=== PATIENT | male | born 1940 | race Caucasian/White ===

== ENCOUNTER 2021-09-25 19:30 | Inpatient (IN) | payer MEDICARE, BC ==
[2021-09-25] VITALS (14 sets, daily range): BP systolic 138–175; BP diastolic 73–104
[~2021-09-25] VITALS: Ht 167.6 cm; Wt 61.5 kg
[2021-09-25] MEDS ORDERED: IV NORMAL SALINE 1000ML BAG 1,000 ML IV SCH (20:00)
[2021-09-25] MEDS ORDERED: 0.9 % SODIUM CHLORIDE 10 ML DISP.SYRIN. IV PRN (20:00)
[2021-09-25] MEDS ORDERED: ONDANSETRON PF 4 MG/2 ML VIAL. IVP PRN (20:00)
--- NOTE | 2021-09-25 20:17 | NUR ---
admit from [facility] sysptoma TPA given at [facility]. NIH score at [facility] 4. Arrival to [facility] NIH- 21. Dr Arzate here, CT head orders recieved.
[2021-09-25] MEDS: SENNOSIDES/DOCUSATE 8.6/50MG TABLET. PO SCH (21:00)
--- NOTE | 2021-09-25 21:29 | RAD ---
CT HEAD INDICATION: Status post tPA worsening neuro status COMPARISON: None Available. Exposure: One or more of the following individualized dose reduction techniques were utilized for thi s examination: 1. Automated exposure control 2. Adjustment of the mA and/or kV according to patient size 3. Use of iterative reconstruction technique TECHNIQUE: 5 mm contiguous axial images were obtained from the skull base to the vertex in both bone and soft tissue algorithm. FINDINGS: There is a large 4.8 x 5.1 cm intraparenchymal bleed identified in the left posterior parietal occipi darrel lobe causing mild effacement of the sulci with mild mass effect. There is minimal 2 mm left-to-ri ght midline shift. Mild bilateral periventricular white matter hypodensities likely chronic small ves gabriella ischemic disease. Mild opacification of the right anterior ethmoid sinuses. IMPRESSION: Large intraparenchymal bleed identified in the left posterior parietooccipital lobe causing mild effa cement of the sulci with mild mass effect. There is minimal 2 mm [id number] midline shift. FOR INTERNAL CODING PURPOSES Critical result: Findings discussed with patient's nurse at 09/25/2021 9:26 PM. RESULT CODE: (C) Electronically signed by: Tonio Cedeno MD (09/25/2021 9:27 PM) [id number]
[2021-09-25] MEDS ORDERED: levETIRAcetam 1,000mg PREMIX 100 ML IV ONE (22:00)
--- NOTE | 2021-09-25 22:09 | PDOC1 ---
History and Physical Date of Service: DOS: DATE: 09/25/21 TIME: 21:55 Chief Complaint: Chief Complain: neuro deficits History of Present Illness: HPI: Patient is an 81-year-old white male who presented as a transfer from [place] today due to right-sided neuro deficits. Patient on any home meds has not seen a doctor in a few decades. Per report from [place] the patient symptoms began around 1 PM today. He was sitting in his chair at home when he felt like his right arm was not working. He slid out of his chair and eventually called EMS and was brought in. Was taken to CT scan recently there on CT head without acute findings. Neurology was consulted recommended CTA of the head. This did not show any apparent abnormalities either. Patient was still having right-sided deficits and he was given TPA. We were then contacted for ICU admission. At the outside hospital patient apparently was conversant with staff there alert and oriented NIH around 4. On arrival here patient nonverbal unable to follow commands. Apparent worsening neurologic status. CT head urgently repeated which showed a left-sided intraparenchymal hemorrhage with mild midline shift. Stat neurosurgery consult placed. Contacted pharmacy to see if any options for TPA reversal and really not any available. No family contact information with patient's chart to update them on his status. Continue to monitor in ICU. Past Medical/Surgical History: PMH/PSH: No known Allergies: Allergies: Coded Allergies: No Known Drug Allergies (Unverified , 09/25/21) Family History: Family History: Unknown Social History: Social History: from OSH denies alcohol tobacco drug use Current Medications: Current Medications Current Medications Ondansetron HCl (Zofran) 4 mg PRN Q6HRS PRN IVP NAUSEA/VOMITING; Start 09/25/21 at 20:00 Info (Icu Electrolyte Protocol) 1 ea DAILY MC ; Start 09/26/21 at 09:00 Sodium Chloride (Normal Saline Flush) 3 ml QSHIFT PRN IV AFTER MEDS AND BLOOD DRAWS; Start 09/25/21 at 20:00 Sodium Chloride 1,000 ml @ 1,000 mls/hr Q1H IV ; Start 09/25/21 at 20:00; Stop 09/25/21 at 20:59; Status DC Senna/Docusate Sodium (Senna Plus) 1 tab BID PO ; Start 09/25/21 at 21:00 Levetiracetam 100 ml @ 400 mls/hr 1X ONCE IV ; Start 09/25/21 at 22:00; Stop 09/25/21 at 22:14 Lorazepam (Ativan Inj) 2 mg PRN Q4HRS PRN IVP AGITATION SEIZURE; Start 09/25/21 at 20:00 Hydralazine HCl (Apresoline Inj) 10 mg PRN Q4HRS PRN IVP ELEVATED BP, SEE COMMENTS; Start 09/25/21 at 20:00 ROS: Review of Systems Review of System cannot obtain Physical Exam: Physcial Exam: GEN: No apparent distress. HEENT: Normal cephalic, atraumatic, external auditory canals are patent EYES: pupils equal and reactive; MUSCULOSKELETAL: appears chronically ill ENDOCRINE: No thyromegaly was palpated LYMPHATICS: No cervical chain or axillary nodes were noted HEMATOPOIETIC: No bruising NECK: Supple, no JVD, no thyromegaly was noted LUNGS: Clear to auscultation in all lung owens without rhonchi or wheezing HEART: RRR, S1, S2 present. Peripheral pulses intact, no obvious murmurs noted ABDOMEN: Soft, nontender. Positive bowel sounds, no organomegaly, normal bowel sounds EXTREMITIES: Without clubbing, cyanosis, or edema. Pedal pulses intact. Negative Homans sign NEUROLOGIC: Patient aphasic. Unable to follow commands. Does w/d to pain PSYCHIATRIC: cannot assess SKIN: No ulcerations or rashes, good skin turgor, no jaundice VASCULAR: Good capillary refill, neurovascular bundle appears to be intact Assessment/Plan Assessment/Plan Intracranial hemorrhage. -Admit to ICU -CT head with left-sided hemorrhage; received TPA prior to transfer here, -Neurosurgery consultation -Neurology consultation -No family on chart to contact -hold any blood thinners -NPO 50min CC time Justifications for Admission Other Justification CESARIO FULTON MD Sep 25, 2021 22:09
--- NOTE | 2021-09-25 23:13 | NUR ---
CT head show a left brain bleed- Veronica Sanchez and [facility] notified. orders received. unable to complete admission and the sensation part of the ca check s/p TPA patient is aphasic
[2021-09-26] VITALS (26 sets, daily range): BP systolic 114–157; BP diastolic 63–94
[2021-09-26] MEDS: SENNOSIDES/DOCUSATE 8.6/50MG TABLET. PO SCH ×2 (07:27→20:52)
--- NOTE | 2021-09-26 08:18 | PDOC2 ---
NEUROLOGY CONSULT Date of Service DOS: DATE: 09/26/21 TIME: 08:14 Reason for Consult Reason for Consult: Stroke Referring Physician Referring Physician: Dr. Arzate Source Source: Chart review History of Present Illness History of Present Illness The patient is an 81-year-old right-handed male who presented to the [facility] emergency department yesterday with right arm and leg weakness that started at 1315. He lives alone and has not seen a physician in 45 years. He had some shaking of the right side during the ambulance ride. He underwent CT of the head and CT angiogram. Dr. Yang discussed the case with Dr. Suero who recommended alteplase. Patient had an NIH of 4 before the alteplase. I do not find documentation of NIH score after alteplase, but nursing note before transfer shows the patient was alert, states that there is severe weakness of the right side. Dr. Yang told me that he did give some Ativan for the possible seizure activity and there was no recurrence. Upon arrival here, nurse noted an NIH of 21. Patient underwent a repeat head CT positive for hemorrhagic stroke as reviewed below. He has had no further seizure activity. Past Medical History Cardiovascular: No pertinent hx Past Surgical History Past Surgical History: No pertinent history Family History Family History: No pertinent hx Social History Social History Single, quit smoking a year ago, no alcohol Current Medications Current Medications Current Medications Ondansetron HCl (Zofran) 4 mg PRN Q6HRS PRN IVP NAUSEA/VOMITING; Start 09/25/21 at 20:00 Info (Icu Electrolyte Protocol) 1 ea DAILY MC ; Start 09/26/21 at 09:00 Sodium Chloride (Normal Saline Flush) 3 ml QSHIFT PRN IV AFTER MEDS AND BLOOD DRAWS; Start 09/25/21 at 20:00 Sodium Chloride 1,000 ml @ 1,000 mls/hr Q1H IV Last administered on 09/25/21at 21:59; Start 09/25/21 at 20:00; Stop 09/25/21 at 20:59; Status DC Senna/Docusate Sodium (Senna Plus) 1 tab BID PO ; Start 09/25/21 at 21:00 Levetiracetam 100 ml @ 400 mls/hr 1X ONCE IV Last administered on 09/25/21at 22:26; Start 09/25/21 at 22:00; Stop 09/25/21 at 22:14; Status DC Lorazepam (Ativan Inj) 2 mg PRN Q4HRS PRN IVP AGITATION SEIZURE; Start 09/25/21 at 20:00 Hydralazine HCl (Apresoline Inj) 10 mg PRN Q4HRS PRN IVP ELEVATED BP, SEE COMMENTS; Start 09/25/21 at 20:00 Nicardipine HCl 50 mg/Sodium Chloride 250 ml @ 25 mls/hr CONT PRN IV PER PROTOCOL Last administered on 09/25/21at 22:44; Start 09/25/21 at 21:45 Allergies Allergies: Coded Allergies: No Known Drug Allergies (Unverified , 09/25/21) ROS Review of System Unobtainable Physical Exam Physical Examination General: Well-developed, well-nourished white male in no acute distress HEENT: Normocephalic andatraumatic. Temporal arteriespulsatile and nontender. Neck: Supple without bruit, no meningismus Musculoskeletal: Stability:see neurologic. Gait exam:see neurologic. Tone:see neurologic.Strength:see neurologic. Neurological: Mental Status:orientation, memory, attention span/concentration, language, fund of knowledge: Eyes open a little to voice, does not follow commands, does look at observer. Cranial Nerves:Pupils equal and reactive to light, extraocular movements areintact. Right field cut. Right central facial weakness. All other cranial related problems are negative except as mentioned before.Reflexes:2+ and symmetric with flexor plantar responses. Motor:Right hemiparesis. Coordination ang gait:Not cooperative. Sensory:Not cooperative. Vitals VITALS Vital Signs Date Time Temp Pulse Resp B/P (MAP) Pulse Ox O2 Delivery O2 Flow Rate FiO2 09/26/21 08:00 Nasal Cannula 2.0 09/26/21 08:00 98.7 98 21 114/[address] HEAD, 09/25/2021 9:26 PM There is a large 4.8 x 5.1 cm intraparenchymal bleed identified in the left posterior parietal occipital lobe causing mild effacement of the sulci with mild mass effect. There is minimal 2 mm [id number] midline shift. Mild bilateral periventricular white matter hypodensities likely chronic small vessel ischemic disease. Mild opacification of the right anterior ethmoid sinuses. IMPRESSION: Large intraparenchymal bleed identified in the left posterior parietooccipital lobe causing mild effacement of the sulci with mild mass effect. There is minimal 2 mm [id number] midline shift. Cristina's: CT STROKE HEAD W/O History: Right arm weakness, numbness. Rule out stroke. Comparison: None. Technique: Noncontrast CT imaging was performed of the head. Findings: No intracranial hemorrhage. No mass effect. No hydrocephalus. No evidence of acute territorial infarction. Moderate hypodensity the periventricular and deep white matter consistent with chronic microvascular ischemic changes. Imaged orbits are unremarkable. Imaged paranasal sinuses and mastoid air cells are clear. The scalp and calvarium are unremarkable. Impression: 1. No acute intracranial abnormality. CTA HEAD AND NECK W/WO CONTRAST History: Right arm weakness. Code stroke. Technique: After bolus of intravenous contrast, volumetric CT data acquisition was acquired of the head and neck. Multiplanar reconstruction images to include MIP and 3-D reconstruction images are submitted. Any determination of stenosis is based on NASCET criteria. Comparison: None Findings: Angiogram neck: Aortic arch: Normal caliber. Mild atherosclerotic calcification. 2 vessel morphology. Common carotid arteries: No stenosis, occlusion or dissection. Internal carotid arteries: No stenosis, occlusion or dissection. External carotid arteries: Patent Vertebral arteries: No stenosis, occlusion or dissection. Angiogram head: ICA: No stenosis, occlusion or aneurysm. MCA: No stenosis, occlusion or aneurysm. DENEEN: No stenosis, occlusion or aneurysm. PLUNKET NURSE: No stenosis, occlusion or aneurysm. Basilar artery: No stenosis, occlusion or aneurysm. Distal vertebral arteries: No stenosis, occlusion or aneurysm. Other: Imaged lung apices are unremarkable. Soft tissues appear normal. No pathologic osseous lesions. Multilevel degenerative changes in the spine. Right maxillary sinus opacification. Impression: 1. No large vessel occlusion. 2. No significant stenosis in the head and neck. 3. Right maxillary sinus disease. Findings discussed with emergency room staff on behalf of Dr. Yang who was involved in a procedure at 09/25/2021 4:15 PM. Assessment/Plan Assessment/Plan Impression: Large intraparenchymal hemorrhage of the left parietal lobe following alteplase given for clinically a small ischemic stroke He had some possible seizure activity but no recurrence Has not seen a physician in 45 years Recommendations: Repeat head CT this morning Neurosurgery is on the case Rehabilitation modalities Hold anticoagulation Blood pressure goal less than 150/90 Also see stroke orders Thank you for letting me help with the patient's care. NICKIE CAMILO MD Sep 26, 2021 08:18
[2021-09-26] MEDS ORDERED: PHARMACY TO REVIEW MEDS. MC PRN (08:30)
[2021-09-26] MEDS: ELECTROLYTE (ICU) PROTOCOL. MC SCH (09:00)
--- NOTE | 2021-09-26 10:05 | PDOC ---
[facility] [facility] PROGRESS NOTE Date of Service DOS: DATE: 09/26/21 TIME: 09:55 Chief Complaint Chief Complaint CVA s/p alteplase 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 History of Present Illness History of Present Illness 09/26: Patient seen in ICU. Afebrile. S/P tPA with hemorrhagic conversion. Neurosurgery consulted. Continue nicardipine drip with goal blood /90 mmHg. Appears to be in rate controlled A. fib. He is somewhat somnolent. Critical care time 30 minutes spent reviewing charts, reviewing labs, reviewing imaging, discussion with RN. Vitals/I&O Vitals/I&O: Vital Signs Date Time Temp Pulse Resp B/P (MAP) Pulse Ox O2 Delivery O2 Flow Rate FiO2 09/26/21 09:00 97 21 123/64 96 Nasal Cannula 2.0 09/26/21 08:00 98.7 98.7 I & O 09/25/21 09/25/21 09/26/21 15:00 23:00 07:00 Intake Total 0 ml 135 ml Balance 0 ml 135 ml Physical Exam General: Alert, No acute distress Heart: Other (Irregularly irregular) Lungs: Clear Abdomen: Soft Extremities: No clubbing, No cyanosis Skin: No rashes, No breakdown Comment Review of Relevant I have reviewed the following items chapito (where applicable) has been applied. Medications: Current Medications Medications (Trade) Dose Ordered Sig/Isaac Route PRN Reason Start Time Stop Time Status Last Admin Dose Admin Sodium Chloride 1,000 ml @ 1,000 mls/hr Q1H IV 09/25/21 20:00 09/25/21 20:59 DC 09/25/21 21:59 Levetiracetam 100 ml @ 400 mls/hr 1X ONCE IV 09/25/21 22:00 09/25/21 22:14 DC 09/25/21 22:26 Nicardipine HCl 50 mg/Sodium Chloride 250 ml @ 25 mls/hr CONT PRN IV PER PROTOCOL 09/25/21 21:45 09/26/21 08:48 DC 09/25/21 22:44 Justifications for Admission Other Justification ORQUIDEA CHING MD Sep 26, 2021 10:05
--- NOTE | 2021-09-26 10:07 | NUR ---
SS following for discharge planning. SS reviewed pt chart and discussed with pt RN. Pt is from home and is currently requiring oxygen at two liters nasal canula. Pt had TPA at [facility]. Non-verbal. Brain bleed. Neurosurgery and Neurology consulted. SS will continue to follow for discharge planning.
[2021-09-26 12:01] LABS: BASO # 0.1 x10^3/uL (0.0-0.2); BASO % 1 % (0-3); EOS % 0 % (0-3); HEMATOCRIT 42.7 % (39.0-53.0); HEMOGLOBIN 13.8 g/dL (13.0-17.5); LYMPH # 1.3 x10^3/uL (1.0-4.8); LYMPH % 9 % (24-48); MEAN CORPUSCULAR HEMOGLOBIN 29 pg (25-35); MEAN CORPUSCULAR HGB CONC 32 g/dL (31-37); MEAN CORPUSCULAR VOLUME 89 fL (79-100); MONO % 14 % (0-9); NEUT # 10.5 x10^3/uL (1.8-7.7); NEUT % 76 % (31-73); PLATELET COUNT 202 x10^3/uL (140-400); RED BLOOD COUNT 4.78 x10^6/uL (4.30-5.70); WHITE BLOOD COUNT 13.9 x10^3/uL (4.0-11.0)
[2021-09-26 12:17] LABS: ALBUMIN 3.4 g/dL (3.4-5.0); ALBUMIN/GLOBULIN RATIO 1.1 (1.0-1.7); CALCIUM 8.5 mg/dL (8.5-10.1); CREATININE 0.8 mg/dL (0.7-1.3); GFR 92.3; POTASSIUM 4.1 mmol/L (3.5-5.1); TOTAL BILIRUBIN 0.7 mg/dL (0.2-1.0); TOTAL PROTEIN 6.4 g/dL (6.4-8.2)
--- NOTE | 2021-09-26 12:43 | PDOC ---
Provider Note Date of Service: DATE: 09/26/21 TIME: 12:37 Provider Note Patient seen and examined at 1145 consulted for hemorrhagic stoke The patient is an 81-year-old right-handed male who presented to the [facility] emergency department yesterday with right arm and leg weakness that started at 1315. He lives alone and has not seen a physician in 45 years. He had some shaking of the right side during the ambulance ride. He underwent CT of the head and CT angiogram. Dr. Yang discussed the case with Dr. Suero who recommended alteplase. Patient had an NIH of 4 before the alteplase. I do not find documentation of NIH score after alteplase, but nursing note before transfer shows the patient was alert, states that there is severe weakness of the right side. Dr. Yang told me that he did give some Ativan for the possible seizure activity and there was no recurrence. Upon arrival here, nurse noted an NIH of 21. Patient underwent a repeat head CT positive for hemorrhagic stroke as reviewed below. He has had no further seizure activity. on exam- Eyes open to voice, does not follow commands, does look at observer. Pupils equal and reactive to light, extraocular movements areintact. Right hemiparesis.Sensory:Not cooperative. CT head with Large intraparenchymal bleed identified in the left posterior parietooccipital lobe causing mild effacement of the sulci with mild mass effect. There is minimal 2 mm [id number] midline shift. continue to monitor in ICU d/w RN SCDs Justifications for Admission Other Justification MEHREEN KRISHNAN MD Sep 26, 2021 12:43
--- NOTE | 2021-09-26 15:54 | RAD ---
CT HEAD/BRAIN WO Date: 09/26/2021 9:17 AM Clinical Indication: F/U ICH Comparison: 09/25/2021. Technique: 5 mm axial tomographic images were obtained of the head without contrast. These were view ed on brain and bone windows. One or more of the following dose reduction techniques were utilized: A utomated exposure control (AEC), Adjustment of mA and/or kV according to patient size, Use of iterati ve reconstruction technique such as ASiR, CT scan done according to ALARA and image gently/image gaines ly Findings: Left parietal acute intraparenchymal hemorrhage is slightly larger in size allowing for differences i n patient's positioning. Increased mass effect on the left lateral ventricle. Unchanged 2 mm left to right midline shift. Patent basilar cisterns. The visualized paranasal sinuses are normal. The visualized portions of the orbits and globes are no rmal. The mastoid air cells are clear. The batching operator topogram shows no lytic lesion or fracture. Impression: Left parietal acute intraparenchymal hemorrhage is slightly larger in size allowing for differences i n patient's positioning. Increased mass effect on the left lateral ventricle. Unchanged 2 mm left to right midline shift. Patent basilar cisterns. Electronically signed by: Oseas Garrido MD (09/26/2021 3:52 PM) [id number]
--- NOTE | 2021-09-26 17:21 | NUR ---
Patient's spoke with patients half sister on his mom's side. Patient is adopted and has only recently found his biological siblings. His sister stated that all of his brother there are 7 have been diagnosed with hypertrophic cardiomyopathy. She stated his brother who is only 28 [address] Causey notified.
[2021-09-27] VITALS (23 sets, daily range): BP systolic 101–178; BP diastolic 47–115
[2021-09-27] MEDS: ELECTROLYTE (ICU) PROTOCOL. MC SCH (09:00)
[2021-09-27] MEDS: SENNOSIDES/DOCUSATE 8.6/50MG TABLET. PO SCH ×2 (09:00→20:05)
--- NOTE | 2021-09-27 11:53 | PDOC ---
PROGRESS NOTES Date of Service DATE: 09/27/21 TIME: 11:50 Assessment Large intraparenchymal hemorrhage of the left parietal lobe following alteplase given for clinically a small ischemic stroke, a little larger on yesterday's CT scan, but clinically unchanged He had some possible seizure activity but no recurrence Has not seen a physician in 45 years Plan Neurosurgery consult appreciated Rehabilitation modalities Hold anticoagulation Blood pressure goal less than 150/90 ICU monitoring Repeat head CT depending on clinical course Echocardiogram and brain MRI depending on clinical course Subjective None Objective Vital Signs Date Time Temp Pulse Resp B/P (MAP) Pulse Ox O2 Delivery O2 Flow Rate FiO2 09/27/21 06:00 114 22 140/84 96 Nasal Cannula 3.0 09/27/21 04:00 98.5 98.5 Intake and Output 09/27/21 07:00 Intake Total 0 ml Output Total 0 ml Balance 0 ml Intake Oral 0 ml Output Urine Total 0 ml # Voids 6 PHYSICAL EXAM Eyes open to voice, does not follow commands, does not regard observer PERRL. EOMI. CN: Right field cut to threat, right central facial weakness Muscle tone: normal. Muscle strength: Right hemiparesis DTR: 2+ Plantar reflex: Flexor Gait: not examined Sensory exam: Not cooperative. Cerebellar:Not cooperative Review of Relevant I have reviewed the following items chapito (where applicable) has been applied. Labs Laboratory Tests Test 09/26/21 11:47 White Blood Count 13.9 x10^3/uL (4.0-11.0) Red Blood Count 4.78 x10^6/uL (4.30-5.70) Hemoglobin 13.8 g/dL (13.0-17.5) Hematocrit 42.7 % (39.0-53.0) Mean Corpuscular Volume 89 fL (79-100) Mean Corpuscular Hemoglobin 29 pg (25-35) Mean Corpuscular Hemoglobin Concent 32 g/dL (31-37) Red Cell Distribution Width 14.0 % (11.5-14.5) Platelet Count 202 x10^3/uL (140-400) Neutrophils (%) (Auto) 76 % (31-73) Lymphocytes (%) (Auto) 9 % (24-48) Monocytes (%) (Auto) 14 % (0-9) Eosinophils (%) (Auto) 0 % (0-3) Basophils (%) (Auto) 1 % (0-3) Neutrophils # (Auto) 10.5 x10^3/uL (1.8-7.7) Lymphocytes # (Auto) 1.3 x10^3/uL (1.0-4.8) Monocytes # (Auto) 2.0 x10^3/uL (0.0-1.1) Eosinophils # (Auto) 0.0 x10^3/uL (0.0-0.7) Basophils # (Auto) 0.1 x10^3/uL (0.0-0.2) Sodium Level 140 mmol/L (136-145) Potassium Level 4.1 mmol/L (3.5-5.1) Chloride Level 103 mmol/L (98-107) Carbon Dioxide Level 27 mmol/L (21-32) Anion Gap 10 (6-14) Blood Urea Nitrogen 11 mg/dL (8-26) Creatinine 0.8 mg/dL (0.7-1.3) Estimated GFR (Cockcroft-Gault) 92.3 BUN/Creatinine Ratio 14 (6-20) Glucose Level 128 mg/dL (70-99) Lactic Acid Level 1.3 mmol/L (0.4-2.0) Calcium Level 8.5 mg/dL (8.5-10.1) Total Bilirubin 0.7 mg/dL (0.2-1.0) Aspartate Amino Transf (AST/SGOT) 21 U/L (15-37) Alanine Aminotransferase (ALT/SGPT) 18 U/L (16-63) Alkaline Phosphatase 72 U/L (46-116) Total Protein 6.4 g/dL (6.4-8.2) Albumin 3.4 g/dL (3.4-5.0) Albumin/Globulin Ratio 1.1 (1.0-1.7) Medications Current Medications Ondansetron HCl (Zofran) 4 mg PRN Q6HRS PRN IVP NAUSEA/VOMITING; Start 09/25/21 at 20:00 Info (Icu Electrolyte Protocol) 1 ea DAILY MC ; Start 09/26/21 at 09:00 Sodium Chloride (Normal Saline Flush) 3 ml QSHIFT PRN IV AFTER MEDS AND BLOOD DRAWS; Start 09/25/21 at 20:00 Sodium Chloride 1,000 ml @ 1,000 mls/hr Q1H IV Last administered on 09/25/21at 21:59; Start 09/25/21 at 20:00; Stop 09/25/21 at 20:59; Status DC Senna/Docusate Sodium (Senna Plus) 1 tab BID PO ; Start 09/25/21 at 21:00 Levetiracetam 100 ml @ 400 mls/hr 1X ONCE IV Last administered on 09/25/21at 22:26; Start 09/25/21 at 22:00; Stop 09/25/21 at 22:14; Status DC Lorazepam (Ativan Inj) 2 mg PRN Q4HRS PRN IVP AGITATION SEIZURE; Start 09/25/21 at 20:00 Hydralazine HCl (Apresoline Inj) 10 mg PRN Q4HRS PRN IVP ELEVATED BP, SEE COMMENTS; Start 09/25/21 at 20:00 Nicardipine HCl 50 mg/Sodium Chloride 250 ml @ 25 mls/hr CONT PRN IV PER PROTOCOL Last administered on 09/25/21at 22:44; Start 09/25/21 at 21:45; Stop 09/26/21 at 08:48; Status DC Info (Review Meds) 1 ea PRN 1X PRN MC SEE COMMENTS; Start 09/26/21 at 08:30 Acetaminophen (Tylenol Supp) 650 mg PRN Q6HRS PRN [place] FEVER > 100.5'F or 38'C; Start 09/26/21 at 08:30 Nicardipine HCl 50 mg/Sodium Chloride 250 ml @ 25 mls/hr CONT PRN IV HYPERTENSION; Start 09/26/21 at 08:30 Vitals/I & O Vital Sign - Last 24 Hours 09/26/21 09/26/21 09/26/21 09/26/21 12:00 12:00 13:00 14:00 Temp 98.9 98.9 Pulse 96 98 99 Resp 17 B/P (MAP) 127/78 131/73 149/83 Pulse Ox 95 97 95 O2 Delivery Nasal Cannula Nasal Cannula Nasal Cannula Nasal Cannula O2 Flow Rate 3.0 3.0 3.0 3.0 09/26/21 09/26/21 09/26/21 09/26/21 15:00 16:00 16:00 17:00 Temp 98.5 98.5 Pulse 88 101 92 Resp 23 22 23 B/P (MAP) 128/83 142/94 151/91 Pulse Ox 92 96 97 O2 Delivery Nasal Cannula Nasal Cannula Nasal Cannula Nasal Cannula O2 Flow Rate 3.0 3.0 3.0 3.0 09/26/21 09/26/21 09/26/21 09/26/21 19:00 20:00 20:00 21:00 Temp 98.3 98.3 Pulse 106 105 103 B/P (MAP) 157/81 130/80 138/84 Pulse Ox 97 97 97 O2 Delivery Nasal Cannula Nasal Cannula Nasal Cannula Nasal Cannula O2 Flow Rate 3.0 3.0 3.0 3.0 09/26/21 09/26/21 09/27/21 09/27/21 22:00 23:00 00:00 00:00 Temp 98.1 98.1 Pulse 109 110 118 B/P (MAP) 148/88 137/84 142/87 Pulse Ox 97 97 93 O2 Delivery Nasal Cannula Nasal Cannula Nasal Cannula Nasal Cannula O2 Flow Rate 3.0 3.0 3.0 3.0 09/27/21 09/27/21 09/27/21 09/27/21 01:00 02:00 03:00 04:00 Temp 98.5 98.5 Pulse 111 111 109 110 Resp B/P (MAP) 132/82 150/88 149/87 145/84 Pulse Ox 93 95 96 96 O2 Delivery Nasal Cannula Nasal Cannula Nasal Cannula Nasal Cannula O2 Flow Rate 3.0 3.0 3.0 3.0 09/27/21 09/27/21 09/27/21 04:00 05:00 06:00 Pulse 102 114 B/P (MAP) 146/88 140/84 Pulse Ox 95 96 O2 Delivery Nasal Cannula Nasal Cannula Nasal Cannula O2 Flow Rate 3.0 3.0 3.0 Intake and Output 09/26/21 09/26/21 09/27/21 15:00 23:00 07:00 Intake Total 0 ml Output Total 0 ml Balance 0 ml [address] HEAD/BRAIN WO, 09/26/2021 9:17 AM Clinical Indication: F/U ICH Comparison: 09/25/2021. Technique: 5 mm axial tomographic images were obtained of the head without contrast. These were viewed on brain and bone windows. One or more of the following dose reduction techniques were utilized: Automated exposure control (AEC), Adjustment of mA and/or kV according to patient size, Use of iterative reconstruction technique such as ASiR, CT scan done according to ALARA and image gently/image wisely Findings: Left parietal acute intraparenchymal hemorrhage is slightly larger in size allowing for differences in patient's positioning. Increased mass effect on the left lateral ventricle. Unchanged 2 mm left to right midline shift. Patent basilar cisterns. The visualized paranasal sinuses are normal. The visualized portions of the orbits and globes are normal. The mastoid air cells are clear. The iuss acoustic analyst topogram shows no lytic lesion or fracture. Impression: Left parietal acute intraparenchymal hemorrhage is slightly larger in size allowing for differences in patient's positioning. Increased mass effect on the left lateral ventricle. Unchanged 2 mm left to right midline shift. Patent basilar cisterns. Justicifation of Admission Dx: Justifications for Admission: Justification of Admission Dx: Yes Acute Hemorrhagic Stroke: Acute Hemorrhagic Stroke NICKIE CAMILO MD Sep 27, 2021 11:53
--- NOTE | 2021-09-27 14:24 | PDOC ---
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 Afebrile. S/P tPA with hemorrhagic conversion. Neurosurgery consulted. Continue nicardipine drip with goal blood [id number] mmHg. Appears to be in rate controlled A. fib. He is somewhat somnolent. Critical care time 30 minutes spent reviewing charts, reviewing labs, reviewing imaging, discussion with RN. 09/27: Patient seen in ICU. Afebrile, tachycardic. S/P TPA with hemorrhagic conversion. Continue to manage blood pressure with IV nicardipine, but essentially no change. Plan is for echocardiogram and MRI when clinical course improves. Critical care time 30 minutes spent reviewing charts, reviewing labs, reviewing imaging, discussion with RN. Vitals/I&O Vitals/I&O: Vital Signs Date Time Temp Pulse Resp B/P (MAP) Pulse Ox O2 Delivery O2 Flow Rate FiO2 09/27/21 12:00 96 23 163/95 100 Nasal Cannula 09/27/21 12:00 2.0 09/27/21 08:00 98.6 98.6 I & O 09/26/21 09/26/21 09/27/21 15:00 23:00 07:00 Intake Total 0 ml Output Total 0 ml Balance 0 ml 0 ml Physical Exam General: Alert, No acute distress Heart: Other (Irregularly irregular) Lungs: Clear Abdomen: Soft Extremities: No clubbing, No cyanosis Skin: No rashes, No breakdown Comment Review of Relevant I have reviewed the following items chapito (where applicable) has been applied. Justifications for Admission Other Justification ORQUIDEA CHING MD Sep 27, 2021 14:24
--- NOTE | 2021-09-27 14:51 | PDOC ---
PROGRESS NOTES Date of Service DATE: 09/27/21 TIME: 14:49 Subjective Subjective no change Objective Objective Vital Signs Date Time Temp Pulse Resp B/P (MAP) Pulse Ox O2 Delivery O2 Flow Rate FiO2 09/27/21 12:00 96 23 163/95 100 Nasal Cannula 09/27/21 12:00 2.0 09/27/21 08:00 98.6 98.6 Intake and Output 09/27/21 07:00 Intake Total 0 ml Output Total 0 ml Balance 0 ml Intake Oral 0 ml Output Urine Total 0 ml # Voids 6 Physical Exam Neuro: Other (Eyes open to voice, does not follow commands, right hemiparesis) Plan Plan of Care Large intraparenchymal hemorrhage of the left parietal lobe following alteplase given for clinically a small ischemic stroke, a little larger on yesterday's CT scan, but clinically unchanged continue to monitor in ICU Comment Review of Relevant I have reviewed the following items chapito (where applicable) has been applied. Labs Laboratory Tests Test 09/26/21 11:47 White Blood Count 13.9 x10^3/uL (4.0-11.0) Red Blood Count 4.78 x10^6/uL (4.30-5.70) Hemoglobin 13.8 g/dL (13.0-17.5) Hematocrit 42.7 % (39.0-53.0) Mean Corpuscular Volume 89 fL (79-100) Mean Corpuscular Hemoglobin 29 pg (25-35) Mean Corpuscular Hemoglobin Concent 32 g/dL (31-37) Red Cell Distribution Width 14.0 % (11.5-14.5) Platelet Count 202 x10^3/uL (140-400) Neutrophils (%) (Auto) 76 % (31-73) Lymphocytes (%) (Auto) 9 % (24-48) Monocytes (%) (Auto) 14 % (0-9) Eosinophils (%) (Auto) 0 % (0-3) Basophils (%) (Auto) 1 % (0-3) Neutrophils # (Auto) 10.5 x10^3/uL (1.8-7.7) Lymphocytes # (Auto) 1.3 x10^3/uL (1.0-4.8) Monocytes # (Auto) 2.0 x10^3/uL (0.0-1.1) Eosinophils # (Auto) 0.0 x10^3/uL (0.0-0.7) Basophils # (Auto) 0.1 x10^3/uL (0.0-0.2) Sodium Level 140 mmol/L (136-145) Potassium Level 4.1 mmol/L (3.5-5.1) Chloride Level 103 mmol/L (98-107) Carbon Dioxide Level 27 mmol/L (21-32) Anion Gap 10 (6-14) Blood Urea Nitrogen 11 mg/dL (8-26) Creatinine 0.8 mg/dL (0.7-1.3) Estimated GFR (Cockcroft-Gault) 92.3 BUN/Creatinine Ratio 14 (6-20) Glucose Level 128 mg/dL (70-99) Lactic Acid Level 1.3 mmol/L (0.4-2.0) Calcium Level 8.5 mg/dL (8.5-10.1) Total Bilirubin 0.7 mg/dL (0.2-1.0) Aspartate Amino Transf (AST/SGOT) 21 U/L (15-37) Alanine Aminotransferase (ALT/SGPT) 18 U/L (16-63) Alkaline Phosphatase 72 U/L (46-116) Total Protein 6.4 g/dL (6.4-8.2) Albumin 3.4 g/dL (3.4-5.0) Albumin/Globulin Ratio 1.1 (1.0-1.7) Medications Current Medications Ondansetron HCl (Zofran) 4 mg PRN Q6HRS PRN IVP NAUSEA/VOMITING; Start 09/25/21 at 20:00 Info (Icu Electrolyte Protocol) 1 ea DAILY MC ; Start 09/26/21 at 09:00 Sodium Chloride (Normal Saline Flush) 3 ml QSHIFT PRN IV AFTER MEDS AND BLOOD DRAWS; Start 09/25/21 at 20:00 Sodium Chloride 1,000 ml @ 1,000 mls/hr Q1H IV Last administered on 09/25/21at 21:59; Start 09/25/21 at 20:00; Stop 09/25/21 at 20:59; Status DC Senna/Docusate Sodium (Senna Plus) 1 tab BID PO ; Start 09/25/21 at 21:00 Levetiracetam 100 ml @ 400 mls/hr 1X ONCE IV Last administered on 09/25/21at 22:26; Start 09/25/21 at 22:00; Stop 09/25/21 at 22:14; Status DC Lorazepam (Ativan Inj) 2 mg PRN Q4HRS PRN IVP AGITATION SEIZURE; Start 09/25/21 at 20:00 Hydralazine HCl (Apresoline Inj) 10 mg PRN Q4HRS PRN IVP ELEVATED BP, SEE COMMENTS; Start 09/25/21 at 20:00 Nicardipine HCl 50 mg/Sodium Chloride 250 ml @ 25 mls/hr CONT PRN IV PER PROTOCOL Last administered on 09/25/21at 22:44; Start 09/25/21 at 21:45; Stop 09/26/21 at 08:48; Status DC Info (Review Meds) 1 ea PRN 1X PRN MC SEE COMMENTS; Start 09/26/21 at 08:30 Acetaminophen (Tylenol Supp) 650 mg PRN Q6HRS PRN [place] FEVER > 100.5'F or 38'C; Start 09/26/21 at 08:30 Nicardipine HCl 50 mg/Sodium Chloride 250 ml @ 25 mls/hr CONT PRN IV HYPERTENSION; Start 09/26/21 at 08:30 Vitals/I & O Vital Sign - Last 24 Hours 09/26/21 09/26/21 09/26/21 09/26/21 15:00 16:00 16:00 17:00 Temp 98.5 98.5 Pulse 88 101 92 Resp B/P (MAP) 128/83 142/94 151/91 Pulse Ox 92 96 97 O2 Delivery Nasal Cannula Nasal Cannula Nasal Cannula Nasal Cannula O2 Flow Rate 3.0 3.0 3.0 3.0 09/26/21 09/26/21 09/26/21 09/26/21 19:00 20:00 20:00 21:00 Temp 98.3 98.3 Pulse 106 105 103 Resp B/P (MAP) 157/81 130/80 138/84 Pulse Ox 97 97 97 O2 Delivery Nasal Cannula Nasal Cannula Nasal Cannula Nasal Cannula O2 Flow Rate 3.0 3.0 3.0 3.0 09/26/21 09/26/21 09/27/21 09/27/21 22:00 23:00 00:00 00:00 Temp 98.1 98.1 Pulse 109 110 118 Resp B/P (MAP) 148/88 137/84 142/87 Pulse Ox 97 97 93 O2 Delivery Nasal Cannula Nasal Cannula Nasal Cannula Nasal Cannula O2 Flow Rate 3.0 3.0 3.0 3.0 09/27/21 09/27/21 09/27/21 09/27/21 01:00 02:00 03:00 04:00 Temp 98.5 98.5 Pulse 111 111 109 110 Resp B/P (MAP) 132/82 150/88 149/87 145/84 Pulse Ox 93 95 96 96 O2 Delivery Nasal Cannula Nasal Cannula Nasal Cannula Nasal Cannula O2 Flow Rate 3.0 3.0 3.0 3.0 09/27/21 09/27/21 09/27/21 09/27/21 04:00 05:00 06:00 07:00 Pulse 102 114 108 Resp B/P (MAP) 146/88 140/84 163/103 Pulse Ox 95 96 90 O2 Delivery Nasal Cannula Nasal Cannula Nasal Cannula Nasal Cannula O2 Flow Rate 3.0 3.0 3.0 3.0 09/27/21 09/27/21 09/27/21 09/27/21 08:00 08:00 09:00 10:00 Temp 98.6 98.6 Pulse 110 114 108 Resp B/P (MAP) 176/93 178/115 Pulse Ox 96 100 100 O2 Delivery Nasal Cannula Nasal Cannula Nasal Cannula Nasal Cannula O2 Flow Rate 2.0 3.0 09/27/21 09/27/21 09/27/21 11:00 12:00 12:00 Pulse 104 96 B/P (MAP) 178/111 163/95 Pulse Ox 100 100 O2 Delivery Nasal Cannula Nasal Cannula Nasal Cannula O2 Flow Rate 2.0 Intake and Output 09/26/21 09/26/21 09/27/21 15:00 23:00 07:00 Intake Total 0 ml Output Total 0 ml Balance 0 ml 0 ml Justifications for Admission Other Justification MEHREEN KRISHNAN MD Sep 27, 2021 14:51
--- NOTE | 2021-09-27 14:59 | NUR ---
Call from immediate family(son Smooth and daughter ?Martha). Unfortunate they had not been reached until son went to house and found door" kicked in". Information on transfer to hospital obtained from neighbors w update on family members condition after call to unit. HIPPA code available to both at time of call. No neuro change past [address] Gallegos in,guarded prognosis. Need to suction oral -unable to "clear" air way independently. Cardene off approx 4 H w gradual increase in BP. Cardene restarted low dose to maintain BP goal 150/90. Cont w current POC
[2021-09-28] VITALS (21 sets, daily range): BP systolic 89–171; BP diastolic 53–92
[2021-09-28 04:46] LABS: BASO # 0.1 x10^3/uL (0.0-0.2); BASO % 1 % (0-3); EOS % 0 % (0-3); HEMATOCRIT 43.4 % (39.0-53.0); HEMOGLOBIN 14.3 g/dL (13.0-17.5); LYMPH # 1.1 x10^3/uL (1.0-4.8); LYMPH % 7 % (24-48); MEAN CORPUSCULAR HEMOGLOBIN 29 pg (25-35); MEAN CORPUSCULAR HGB CONC 33 g/dL (31-37); MEAN CORPUSCULAR VOLUME 89 fL (79-100); MONO # 2.2 x10^3/uL (0.0-1.1); MONO % 13 % (0-9); NEUT # 13.6 x10^3/uL (1.8-7.7); NEUT % 80 % (31-73); PLATELET COUNT 185 x10^3/uL (140-400); RED BLOOD COUNT 4.87 x10^6/uL (4.30-5.70); RED CELL DISTRIBUTION WIDTH 14.2 % (11.5-14.5)
[2021-09-28] MEDS: SENNOSIDES/DOCUSATE 8.6/50MG TABLET. PO SCH ×2 (09:00→21:00)
[2021-09-28] MEDS: ELECTROLYTE (ICU) PROTOCOL. MC SCH (09:00)
--- NOTE | 2021-09-28 12:07 | PDOC ---
[facility] PROGRESS NOTE Date of Service DOS: DATE: 09/28/21 TIME: 12:02 Chief Complaint Chief Complaint CVA s/p alteplase 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 History of Present Illness History of Present Illness 09/26: Patient seen in ICU. Afebrile. S/P tPA with hemorrhagic conversion. Neurosurgery consulted. Continue nicardipine drip with goal blood [id number] mmHg. Appears to be in rate controlled A. fib. He is somewhat somnolent. Critical care time 30 minutes spent reviewing charts, reviewing labs, reviewing imaging, discussion with RN. 09/27: Patient seen in ICU. Afebrile, tachycardic. S/P TPA with hemorrhagic conversion. Continue to manage blood pressure with IV nicardipine, but essentially no change. Plan is for echocardiogram and MRI when clinical course improves. Critical care time 30 minutes spent reviewing charts, reviewing labs, reviewing imaging, discussion with RN. 09/28: Patient seen in ICU. Afebrile, remains somewhat tachycardic. He is clinically unchanged. We will continue to monitor in ICU. PT/OT/ST following. If patient fails a swallow study test, which is highly likely, will need to provide nutrition with NG tube. Spent a considerable amount of time with daughter discussing plan of care. He is COVID-19 negative by PCR at [facility], so immunocompromised family members may come and visit him. Critical care time 30 minutes spent reviewing charts, reviewing labs, reviewing imaging, discussion with daughter, discussion with RN. Vitals/I&O Vitals/I&O: Vital Signs Date Time Temp Pulse Resp B/P (MAP) Pulse Ox O2 Delivery O2 Flow Rate FiO2 09/28/21 06:00 118 20 125/80 91 Nasal Cannula 09/28/21 04:00 98.1 98.1 09/28/21 04:00 2.0 I & O 09/27/21 09/27/21 09/28/21 15:00 23:00 07:00 Intake Total 0 ml 0 ml 162 ml Balance 0 ml 0 ml 162 ml Physical Exam General: Alert, No acute distress Heart: Other (Irregularly irregular) Lungs: Clear Abdomen: Soft Extremities: No clubbing, No cyanosis Skin: No rashes, No breakdown Labs Labs: Laboratory Tests Test 09/28/21 04:30 White Blood Count 17.0 x10^3/uL (4.0-11.0) Red Blood Count 4.87 x10^6/uL (4.30-5.70) Hemoglobin 14.3 g/dL (13.0-17.5) Hematocrit 43.4 % (39.0-53.0) Mean Corpuscular Volume 89 fL (79-100) Mean Corpuscular Hemoglobin 29 pg (25-35) Mean Corpuscular Hemoglobin Concent 33 g/dL (31-37) Red Cell Distribution Width 14.2 % (11.5-14.5) Platelet Count 185 x10^3/uL (140-400) Neutrophils (%) (Auto) 80 % (31-73) Lymphocytes (%) (Auto) 7 % (24-48) Monocytes (%) (Auto) 13 % (0-9) Eosinophils (%) (Auto) 0 % (0-3) Basophils (%) (Auto) 1 % (0-3) Neutrophils # (Auto) 13.6 x10^3/uL (1.8-7.7) Lymphocytes # (Auto) 1.1 x10^3/uL (1.0-4.8) Monocytes # (Auto) 2.2 x10^3/uL (0.0-1.1) Eosinophils # (Auto) 0.0 x10^3/uL (0.0-0.7) Basophils # (Auto) 0.1 x10^3/uL (0.0-0.2) Comment Review of Relevant I have reviewed the following items chapito (where applicable) has been applied. Justifications for Admission Other Justification ORQUIDEA CHING MD Sep 28, 2021 12:07
--- NOTE | 2021-09-28 14:33 | PDOC ---
PROGRESS NOTES Date of Service DATE: 09/28/21 TIME: 14:31 Assessment Large intraparenchymal hemorrhage of the left parietal lobe following alteplase given for clinically a small ischemic stroke, clinically unchanged He had some possible seizure activity but no recurrence Has not seen a physician in 45 years Plan Rehabilitation modalities Hold anticoagulation Blood pressure goal less than 150/90 ICU monitoring MRI brain tomorrow Echocardiogram tomorow Discussed with patient's daughter including issues of placement as well as probable need for PEG in the next few days. She has an autistic son whom she cares for full-time Subjective None Objective Vital Signs Date Time Temp Pulse Resp B/P (MAP) Pulse Ox O2 Delivery O2 Flow Rate FiO2 09/28/21 12:00 Nasal Cannula 2.0 09/28/21 06:00 118 20 125/80 91 09/28/21 04:00 98.1 98.1 Intake and Output 09/28/21 07:00 Intake Total 162 ml Balance 162 ml Intake Oral 0 ml IV Total 162 ml # Voids 10 PHYSICAL EXAM Eyes open to voice, does not follow commands, does not regard observer PERRL. EOMI. CN: Right field cut to threat, right central facial weakness Muscle tone: normal. Muscle strength: Right hemiparesis DTR: 2+ Plantar reflex: Flexor Gait: not examined Sensory exam: Not cooperative. Cerebellar:Not cooperative Review of Relevant I have reviewed the following items chapito (where applicable) has been applied. Labs Laboratory Tests Test 09/28/21 04:30 White Blood Count 17.0 x10^3/uL (4.0-11.0) Red Blood Count 4.87 x10^6/uL (4.30-5.70) Hemoglobin 14.3 g/dL (13.0-17.5) Hematocrit 43.4 % (39.0-53.0) Mean Corpuscular Volume 89 fL (79-100) Mean Corpuscular Hemoglobin 29 pg (25-35) Mean Corpuscular Hemoglobin Concent 33 g/dL (31-37) Red Cell Distribution Width 14.2 % (11.5-14.5) Platelet Count 185 x10^3/uL (140-400) Neutrophils (%) (Auto) 80 % (31-73) Lymphocytes (%) (Auto) 7 % (24-48) Monocytes (%) (Auto) 13 % (0-9) Eosinophils (%) (Auto) 0 % (0-3) Basophils (%) (Auto) 1 % (0-3) Neutrophils # (Auto) 13.6 x10^3/uL (1.8-7.7) Lymphocytes # (Auto) 1.1 x10^3/uL (1.0-4.8) Monocytes # (Auto) 2.2 x10^3/uL (0.0-1.1) Eosinophils # (Auto) 0.0 x10^3/uL (0.0-0.7) Basophils # (Auto) 0.1 x10^3/uL (0.0-0.2) Laboratory Tests Test 09/28/21 04:30 White Blood Count 17.0 x10^3/uL (4.0-11.0) Red Blood Count 4.87 x10^6/uL (4.30-5.70) Hemoglobin 14.3 g/dL (13.0-17.5) Hematocrit 43.4 % (39.0-53.0) Mean Corpuscular Volume 89 fL (79-100) Mean Corpuscular Hemoglobin 29 pg (25-35) Mean Corpuscular Hemoglobin Concent 33 g/dL (31-37) Red Cell Distribution Width 14.2 % (11.5-14.5) Platelet Count 185 x10^3/uL (140-400) Neutrophils (%) (Auto) 80 % (31-73) Lymphocytes (%) (Auto) 7 % (24-48) Monocytes (%) (Auto) 13 % (0-9) Eosinophils (%) (Auto) 0 % (0-3) Basophils (%) (Auto) 1 % (0-3) Neutrophils # (Auto) 13.6 x10^3/uL (1.8-7.7) Lymphocytes # (Auto) 1.1 x10^3/uL (1.0-4.8) Monocytes # (Auto) 2.2 x10^3/uL (0.0-1.1) Eosinophils # (Auto) 0.0 x10^3/uL (0.0-0.7) Basophils # (Auto) 0.1 x10^3/uL (0.0-0.2) Medications Current Medications Ondansetron HCl (Zofran) 4 mg PRN Q6HRS PRN IVP NAUSEA/VOMITING; Start 09/25/21 at 20:00 Info (Icu Electrolyte Protocol) 1 ea DAILY MC Last administered on 09/28/21at 09:00; Start 09/26/21 at 09:00 Sodium Chloride (Normal Saline Flush) 3 ml QSHIFT PRN IV AFTER MEDS AND BLOOD DRAWS; Start 09/25/21 at 20:00 Sodium Chloride 1,000 ml @ 1,000 mls/hr Q1H IV Last administered on 09/25/21at 21:59; Start 09/25/21 at 20:00; Stop 09/25/21 at 20:59; Status DC Senna/Docusate Sodium (Senna Plus) 1 tab BID PO ; Start 09/25/21 at 21:00 Levetiracetam 100 ml @ 400 mls/hr 1X ONCE IV Last administered on 09/25/21at 22:26; Start 09/25/21 at 22:00; Stop 09/25/21 at 22:14; Status DC Lorazepam (Ativan Inj) 2 mg PRN Q4HRS PRN IVP AGITATION SEIZURE; Start 09/25/21 at 20:00 Hydralazine HCl (Apresoline Inj) 10 mg PRN Q4HRS PRN IVP ELEVATED BP, SEE COMMENTS; Start 09/25/21 at 20:00 Nicardipine HCl 50 mg/Sodium Chloride 250 ml @ 25 mls/hr CONT PRN IV PER PROTOCOL Last administered on 09/25/21at 22:44; Start 09/25/21 at 21:45; Stop 09/26/21 at 08:48; Status DC Info (Review Meds) 1 ea PRN 1X PRN MC SEE COMMENTS; Start 09/26/21 at 08:30 Acetaminophen (Tylenol Supp) 650 mg PRN Q6HRS PRN VA FEVER > 100.5'F or 38'C; Start 09/26/21 at 08:30 Nicardipine HCl 50 mg/Sodium Chloride 250 ml @ 25 mls/hr CONT PRN IV HYPERTENSION Last administered on 09/27/21at 20:04; Start 09/26/21 at 08:30 Labetalol HCl (Normodyne Iv Push) 10 mg PRN Q10MIN PRN IVP HYPERTENSION; Start 09/28/21 at 14:30 Metoprolol Tartrate (Lopressor Vial) 5 mg PRN Q5MIN PRN IVP TACHYCARDIA; Start 09/28/21 at 14:30 Vitals/I & O Vital Sign - Last 24 Hours 09/27/21 09/27/21 09/27/21 09/27/21 15:00 16:00 16:00 17:00 Temp 98.7 98.7 Pulse 130 124 114 B/P (MAP) 145/79 137/69 136/72 Pulse Ox 100 100 100 O2 Delivery Nasal Cannula Nasal Cannula Nasal Cannula Nasal Cannula O2 Flow Rate 2.0 3.0 09/27/21 09/27/21 09/27/21 09/27/21 18:00 19:00 20:00 20:00 Temp 97.6 97.6 Pulse 124 124 128 B/P (MAP) 133/79 123/84 125/88 Pulse Ox 100 100 100 O2 Delivery Nasal Cannula Nasal Cannula Nasal Cannula Nasal Cannula O2 Flow Rate 2.0 09/27/21 09/27/21 09/27/21 09/28/21 21:00 22:00 23:00 00:00 Pulse 125 119 114 Resp B/P (MAP) 101/47 146/86 149/80 Pulse Ox 96 96 93 O2 Delivery Nasal Cannula Nasal Cannula Nasal Cannula Nasal Cannula O2 Flow Rate 2.0 09/28/21 09/28/21 09/28/21 09/28/21 00:00 01:00 02:00 03:00 Temp 98.0 98.0 Pulse 120 120 118 115 Resp B/P (MAP) 147/78 128/84 132/76 142/74 Pulse Ox 92 91 91 92 O2 Delivery Nasal Cannula Nasal Cannula Nasal Cannula Nasal Cannula 09/28/21 09/28/21 09/28/21 09/28/21 04:00 04:00 05:00 06:00 Temp 98.1 98.1 Pulse 122 120 118 Resp B/P (MAP) 143/88 140/81 125/80 Pulse Ox 92 91 91 O2 Delivery Nasal Cannula Nasal Cannula Nasal Cannula Nasal Cannula O2 Flow Rate 2.0 09/28/21 09/28/21 08:00 12:00 O2 Delivery Nasal Cannula Nasal Cannula O2 Flow Rate 2.0 2.0 Intake and Output 09/27/21 09/27/21 09/28/21 15:00 23:00 07:00 Intake Total 0 ml 0 ml 162 ml Balance 0 ml 0 ml 162 ml Justicifation of Admission Dx: Justifications for Admission: Justification of Admission Dx: Yes Acute Hemorrhagic Stroke: Acute Hemorrhagic Stroke NICKIE CAMILO MD Sep 28, 2021 14:33
[2021-09-28] MEDS: IV NORMAL SALINE 1000ML BAG 1,000 ML IV SCH (20:25)
[2021-09-29] VITALS (19 sets, daily range): BP systolic 141–163; BP diastolic 74–100
[2021-09-29] MEDS: METOPROLOL IV PUSH 5 MG/5 ML VIAL. IVP PRN ×3 (00:38→11:51)
[2021-09-29] MEDS: hydrALAZINE 20 MG/ML VIAL. IVP PRN (04:21)
[2021-09-29] MEDS: IV NORMAL SALINE 1000ML BAG 1,000 ML IV SCH (05:24)
[2021-09-29] MEDS ORDERED: PERFLUTREN PROTEIN-A MICROSPHR 0.22 MG/ML 3 ML VIAL. IV ONE (08:15)
--- NOTE | 2021-09-29 08:40 | PDOC ---
PROGRESS NOTES Date of Service DATE: 09/29/21 TIME: 08:38 Assessment Large intraparenchymal hemorrhage of the left parietal lobe following alteplase given for clinically a small ischemic stroke, clinically unchanged He had some possible seizure activity but no recurrence Has not seen a physician in 45 years Plan Rehabilitation modalities Hold anticoagulation Blood pressure goal less than 150/90 ICU monitoring MRI brain today Echocardiogram today Likely will need PEG Subjective None Objective Vital Signs Date Time Temp Pulse Resp B/P (MAP) Pulse Ox O2 Delivery O2 Flow Rate FiO2 09/29/21 06:00 102 22 141/76 92 Nasal Cannula 3.0 09/29/21 04:00 99.7 99.7 Intake and Output 09/29/21 07:00 Intake Total 708.91 ml Output Total 700 ml Balance 8.91 ml IV Total 708.91 ml Output Urine Total 700 ml PHYSICAL EXAM Eyes open, does not follow commands, does regard observer PERRL. EOMI. CN: Right field cut to threat, right central facial weakness Muscle tone: normal. Muscle strength: Right hemiparesis DTR: 2+ Plantar reflex: Flexor Gait: not examined Sensory exam: Not cooperative. Cerebellar:Not cooperative Review of Relevant I have reviewed the following items chapito (where applicable) has been applied. Labs Laboratory Tests Test 09/28/21 04:30 White Blood Count 17.0 x10^3/uL (4.0-11.0) Red Blood Count 4.87 x10^6/uL (4.30-5.70) Hemoglobin 14.3 g/dL (13.0-17.5) Hematocrit 43.4 % (39.0-53.0) Mean Corpuscular Volume 89 fL (79-100) Mean Corpuscular Hemoglobin 29 pg (25-35) Mean Corpuscular Hemoglobin Concent 33 g/dL (31-37) Red Cell Distribution Width 14.2 % (11.5-14.5) Platelet Count 185 x10^3/uL (140-400) Neutrophils (%) (Auto) 80 % (31-73) Lymphocytes (%) (Auto) 7 % (24-48) Monocytes (%) (Auto) 13 % (0-9) Eosinophils (%) (Auto) 0 % (0-3) Basophils (%) (Auto) 1 % (0-3) Neutrophils # (Auto) 13.6 x10^3/uL (1.8-7.7) Lymphocytes # (Auto) 1.1 x10^3/uL (1.0-4.8) Monocytes # (Auto) 2.2 x10^3/uL (0.0-1.1) Eosinophils # (Auto) 0.0 x10^3/uL (0.0-0.7) Basophils # (Auto) 0.1 x10^3/uL (0.0-0.2) Medications Current Medications Ondansetron HCl (Zofran) 4 mg PRN Q6HRS PRN IVP NAUSEA/VOMITING; Start 09/25/21 at 20:00 Info (Icu Electrolyte Protocol) 1 ea DAILY MC Last administered on 09/28/21at 09:00; Start 09/26/21 at 09:00 Sodium Chloride (Normal Saline Flush) 3 ml QSHIFT PRN IV AFTER MEDS AND BLOOD DRAWS; Start 09/25/21 at 20:00 Sodium Chloride 1,000 ml @ 1,000 mls/hr Q1H IV Last administered on 09/25/21at 21:59; Start 09/25/21 at 20:00; Stop 09/25/21 at 20:59; Status DC Senna/Docusate Sodium (Senna Plus) 1 tab BID PO ; Start 09/25/21 at 21:00 Levetiracetam 100 ml @ 400 mls/hr 1X ONCE IV Last administered on 09/25/21at 22:26; Start 09/25/21 at 22:00; Stop 09/25/21 at 22:14; Status DC Lorazepam (Ativan Inj) 2 mg PRN Q4HRS PRN IVP AGITATION SEIZURE; Start 09/25/21 at 20:00 Hydralazine HCl (Apresoline Inj) 10 mg PRN Q4HRS PRN IVP ELEVATED BP, SEE COMMENTS Last administered on 09/29/21at 04:21; Start 09/25/21 at 20:00 Nicardipine HCl 50 mg/Sodium Chloride 250 ml @ 25 mls/hr CONT PRN IV PER PROTOCOL Last administered on 09/25/21at 22:44; Start 09/25/21 at 21:45; Stop 09/26/21 at 08:48; Status DC Info (Review Meds) 1 ea PRN 1X PRN MC SEE COMMENTS; Start 09/26/21 at 08:30 Acetaminophen (Tylenol Supp) 650 mg PRN Q6HRS PRN [place] FEVER > 100.5'F or 38'C; Start 09/26/21 at 08:30 Nicardipine HCl 50 mg/Sodium Chloride 250 ml @ 25 mls/hr CONT PRN IV HYPERTENSION Last administered on 09/27/21at 20:04; Start 09/26/21 at 08:30 Labetalol HCl (Normodyne Iv Push) 10 mg PRN Q10MIN PRN IVP HYPERTENSION; Start 09/28/21 at 14:30 Metoprolol Tartrate (Lopressor Vial) 5 mg PRN Q5MIN PRN IVP TACHYCARDIA Last administered on 09/29/21at 05:47; Start 09/28/21 at 14:30 Sodium Chloride 1,000 ml @ 75 mls/hr [id number] IV Last administered on 09/29/21at 05:24; Start 09/28/21 at 18:30 Perflutren Protein Type A Microsphe (Optison) 0.66 mg 1X ONCE IV ; Start 09/29/21 at 08:15; Stop 09/29/21 at 08:16; Status DC Vitals/I & O Vital Sign - Last 24 Hours 09/28/21 09/28/21 09/28/21 09/28/21 09:00 10:00 11:00 12:00 Temp 98.0 98.0 Pulse 120 120 116 112 Resp 24 B/P (MAP) 158/81 171/75 151/53 153/84 Pulse Ox 91 94 94 94 O2 Delivery Nasal Cannula Nasal Cannula Nasal Cannula Nasal Cannula O2 Flow Rate 3.0 3.0 3.0 3.0 09/28/21 09/28/21 09/28/21 09/28/21 12:00 13:00 15:00 16:00 Pulse 124 124 Resp 19 B/P (MAP) 134/ Pulse Ox 92 93 O2 Delivery Nasal Cannula Nasal Cannula Nasal Cannula Nasal Cannula O2 Flow Rate 2.0 3.0 3.0 2.0 09/28/21 09/28/21 09/28/21 09/28/21 17:00 18:00 19:00 20:00 Temp 98.1 98.1 Pulse 122 114 116 Resp 20 B/P (MAP) 135/80 132/82 148/92 Pulse Ox 93 92 93 O2 Delivery Nasal Cannula Nasal Cannula Nasal Cannula Nasal Cannula O2 Flow Rate 3.0 3.0 3.0 3.0 09/28/21 09/28/21 09/28/21 09/28/21 20:00 21:00 22:00 23:00 Temp 98.7 98.7 Pulse 120 124 126 122 Resp 20 B/P (MAP) 145/91 137/78 152/85 146/91 Pulse Ox 93 94 92 93 O2 Delivery Nasal Cannula Nasal Cannula Nasal Cannula Nasal Cannula O2 Flow Rate 3.0 3.0 3.0 3.0 09/28/21 09/29/21 09/29/21 09/29/21 23:50 00:00 00:00 00:38 Temp 99.1 99.1 Pulse 126 130 B/P (MAP) 89/68 154/74 147/96 Pulse Ox 91 O2 Delivery Nasal Cannula Nasal Cannula O2 Flow Rate 3.0 3.0 09/29/21 09/29/21 09/29/21 09/29/21 01:00 02:00 03:00 04:00 Pulse 96 106 120 B/P (MAP) 147/96 141/90 144/94 Pulse Ox 92 92 90 O2 Delivery Nasal Cannula Nasal Cannula Nasal Cannula Nasal Cannula O2 Flow Rate 3.0 3.0 3.0 3.0 09/29/21 09/29/21 09/29/21 09/29/21 04:00 04:21 05:00 05:47 Temp 99.7 99.7 Pulse 118 122 128 135 B/P (MAP) 151/84 163/82 161/82 162/71 Pulse Ox 93 90 O2 Delivery Nasal Cannula Nasal Cannula O2 Flow Rate 3.0 3.0 09/29/21 06:00 Pulse 102 Resp B/P (MAP) 141/76 Pulse Ox 92 O2 Delivery Nasal Cannula O2 Flow Rate 3.0 Intake and Output 09/28/21 09/28/21 09/29/21 15:00 23:00 07:00 Intake Total 708.91 ml Output Total 700 ml Balance -700 ml 708.91 ml Justicifation of Admission Dx: Justifications for Admission: Justification of Admission Dx: Yes Acute Hemorrhagic Stroke: Acute Hemorrhagic Stroke NICKIE CAMILO MD Sep 29, 2021 08:40
[2021-09-29] MEDS: SENNOSIDES/DOCUSATE 8.6/50MG TABLET. PO SCH ×2 (09:00→21:00)
[2021-09-29] MEDS: ELECTROLYTE (ICU) PROTOCOL. MC SCH (09:00)
[2021-09-29] MEDS ORDERED: PIP/TAZO PER PHARMACY MC PRN (11:00)
--- NOTE | 2021-09-29 11:12 | PDOC ---
[employer] PROGRESS NOTE Date of Service DOS: DATE: 09/29/21 TIME: 11:08 Chief Complaint Chief Complaint Large left intraparenchymal hemorrhage after TPAe 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 Has not seen a doctor in decades Tobacco abuse x60 years Hypoxia Leukocytosis Tachycardia Right neglect Possible aspiration pneumonia History of Present Illness History of Present Illness 09/29/2021 Patient seen and examined in the ICU He remains critically ill Has a glove on the left hand Right hand and arm not able to move He does not move his right leg either He appears to neglect his right side 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 Afebrile. S/P tPA with hemorrhagic conversion. Neurosurgery consulted. Continue nicardipine drip with goal blood [id number] mmHg. Appears to be in rate controlled A. fib. He is somewhat somnolent. Critical care time 30 minutes spent reviewing charts, reviewing labs, reviewing imaging, discussion with RN. 09/27: Patient seen in ICU. Afebrile, tachycardic. S/P TPA with hemorrhagic conversion. Continue to manage blood pressure with IV nicardipine, but essentially no change. Plan is for echocardiogram and MRI when clinical course improves. Critical care time 30 minutes spent reviewing charts, reviewing labs, reviewing imaging, discussion with RN. 09/28: Patient seen in ICU. Afebrile, remains somewhat tachycardic. He is clinically unchanged. We will continue to monitor in ICU. PT/OT/ST following. If patient fails a swallow study test, which is highly likely, will need to provide nutrition with NG tube. Spent a considerable amount of time with anibal bailey discussing plan of care. He is COVID-19 negative by PCR at [facility], so immunocompromised family members may come and visit him. Critical care time 30 minutes spent reviewing charts, reviewing labs, reviewing imaging, discussion with daughter, discussion with RN. 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 has right neglect General: mild distress, Other (Does answer questions but slowly and kind of mumbles cannot move his right side) Heart: Other (Tachycardic) Lungs: Clear, Other (He has a cough not able to handle his secretions very well) Abdomen: Soft Extremities: No clubbing, No cyanosis Skin: No rashes, No breakdown Assessment and Plan Assessmemt and Plan Large left intraparenchymal hemorrhage after TPAe 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 Has not seen a doctor in decades Tobacco abuse x60 years Hypoxia Leukocytosis Tachycardia Right neglect Possible aspiration pneumonia Plan ICU monitoring I ordered a chest x-ray to see if he is developing aspiration pneumonia Ordered empiric Zosyn Consult pulmonary Consult cardiology for the tachycardia and read the echo Speech therapy evaluation in progress suspect he may need a PEG tube will hold off on GI consult for now until I hear from speech therapist I started PPN Trend labs DVT prophylaxis Full code Suspect he will need to go to [facility] rehab or some other high-level rehabilitation unit Long-term prognosis guarded CC time 32 Comment Review of Relevant I have reviewed the following items chapito (where applicable) has been applied. Medications: Current Medications Medications (Trade) Dose Ordered Sig/Isaac Route PRN Reason Start Time Stop Time Status Last Admin Dose Admin Metoprolol Tartrate (Lopressor Vial) 5 mg PRN Q5MIN PRN IVP TACHYCARDIA 09/28/21 14:30 09/29/21 05:47 Sodium Chloride 1,000 ml @ 75 mls/hr [id number] IV 09/28/21 18:30 09/29/21 05:24 Justifications for Admission Other Justification HUSSEIN RICHEY III DO Sep 29, 2021 11:12
[2021-09-29] MEDS: PIPERACILLIN/TAZOBACTAM 3.375 GM in IV NORMAL SALINE 50ML 50 ML IV SCH ×3 (11:33→23:48)
--- NOTE | 2021-09-29 12:34 | PDOC ---
PULMONARY PROGRESS NOTES DATE: 09/29/21 TIME: 12:33 Vitals Vital Signs Date Time Temp Pulse Resp B/P (MAP) Pulse Ox O2 Delivery O2 Flow Rate FiO2 09/29/21 11:51 117 165/97 09/29/21 10:00 22 93 Nasal Cannula 3.0 09/29/21 08:00 98.9 98.9 Lungs: Clear, Other (He has a cough not able to handle his secretions very well) Labs Laboratory Tests Test 09/28/21 04:30 White Blood Count 17.0 x10^3/uL (4.0-11.0) Red Blood Count 4.87 x10^6/uL (4.30-5.70) Hemoglobin 14.3 g/dL (13.0-17.5) Hematocrit 43.4 % (39.0-53.0) Mean Corpuscular Volume 89 fL (79-100) Mean Corpuscular Hemoglobin 29 pg (25-35) Mean Corpuscular Hemoglobin Concent 33 g/dL (31-37) Red Cell Distribution Width 14.2 % (11.5-14.5) Platelet Count 185 x10^3/uL (140-400) Neutrophils (%) (Auto) 80 % (31-73) Lymphocytes (%) (Auto) 7 % (24-48) Monocytes (%) (Auto) 13 % (0-9) Eosinophils (%) (Auto) 0 % (0-3) Basophils (%) (Auto) 1 % (0-3) Neutrophils # (Auto) 13.6 x10^3/uL (1.8-7.7) Lymphocytes # (Auto) 1.1 x10^3/uL (1.0-4.8) Monocytes # (Auto) 2.2 x10^3/uL (0.0-1.1) Eosinophils # (Auto) 0.0 x10^3/uL (0.0-0.7) Basophils # (Auto) 0.1 x10^3/uL (0.0-0.2) Impression . Full consult dictated Hypoxemia suspect secondary to hypovolemia ventilation Continue current support GRZEGORZ LOERA MD Sep 29, 2021 12:34
--- NOTE | 2021-09-29 12:37 | RAD ---
EXAMINATION: XR CHEST 1V CLINICAL HISTORY: Hypoxia, 60-year history of tobacco abuse. EXAM DATE/TIME: 09/29/2021 11:03 AM COMPARISON: 09/25/2021 FINDINGS: Lines, Tubes, and Devices: None. Cardiomediastinal Silhouette: Stable heart size. Aortic atherosclerotic calcification. Lungs and Pleura: Mildly increased diffuse interstitial opacities and mild patchy bibasilar opacities . Questionable small pleural effusions. Bones and Soft Tissues: Degenerative changes in the thoracic spine. IMPRESSION: New mild interstitial and patchy bibasilar alveolar opacities with questionable pleural effusions, po ssibly related to volume overload. Electronically signed by: Cedric Platt DO (09/29/2021 12:34 PM) [id number]
--- NOTE | 2021-09-29 12:41 | RAD ---
EXAMINATION: US DPLX CAROTID BILAT CLINICAL HISTORY: Stroke. TECHNIQUE: Evaluation of the bilateral carotid, vertebral, and subclavian arteries performed with gra y scale, color Doppler, and spectral Doppler sonographic imaging. COMPARISON: None FINDINGS: Left carotid arterial system not evaluated due to patient's inability to turn their head for necessar y positioning in order to visualize the arteries. CCA Peak Systolic Velocity (cm/sec): Right: 85 ICA Peak Systolic Velocity (cm/sec): Right: 81 ICA End Diastolic Velocity (cm/sec): Right: 11 ECA Peak Systolic Velocity (cm/sec): Right: 107 Vertebrals (cm/sec): Right: 52 Subclavians (cm/sec): Right: 107 ICA/CCA Systolic Velocity Ratio: Right: 1.0 Plaque distribution: Scattered calcified plaque, greatest in the right carotid bulb. IMPRESSION: No evidence of hemodynamically significant stenosis in the right carotid arterial system. Left carotid arterial system not evaluated as described. Electronically signed by: Cedric Platt DO (09/29/2021 12:39 PM) [id number]
--- NOTE | 2021-09-29 13:43 | CONS ---
DATE OF CONSULTATION: 09/29/2021 ATTENDING PHYSICIAN: Dr. Arzate. REASON FOR CONSULTATION: The patient is seen in pulmonary consultation at the request of Dr. Cuellar for hypoxemia. HISTORY OF PRESENT ILLNESS: The patient is an 81-year-old who normally does not see any family physician and has not seen a doctor for many, many years, presented with a large intraparenchymal hemorrhage of the left parietal lobe. Apparently, the patient was given a TPA for small ischemic stroke. He also had a possible seizure. He is currently being followed by Neurology. He has become more hypoxic. I was asked to see him in consultation. Unfortunately, I am unable to obtain much history from the patient himself. He does not appear to be in any respiratory distress. He is currently on oxygen supplementation at 3-4 liters. His vital signs have been stable. Blood pressure at times is elevated. PAST MEDICAL HISTORY: None to describe. ALLERGIES: No known drug allergies. FAMILY HISTORY: Unknown. SOCIAL HISTORY: Apparently, there is no history of tobacco or alcoholism. REVIEW OF SYSTEMS: Unobtainable secondary to patient's condition. CURRENT MEDICATIONS: List was reviewed. He is currently on empiric antibiotics with Zosyn, nicardipine drip, hydralazine, and other medications. PHYSICAL EXAMINATION: GENERAL: He was in no respiratory distress, currently on 2-3 liters of oxygen supplementation, O2 sats greater than 92%. NECK: Jugular venous distention was not elevated. CHEST: Full expansion. LUNGS: Adequate flow anteriorly. CARDIOVASCULAR: Regular rate and rhythm with S1, S2. No S3. ABDOMEN: Soft. EXTREMITIES: No clubbing, cyanosis or edema. NEUROLOGIC: The patient was awake, but not following commands. A detailed neuro exam was not performed. LABORATORY DATA: White count was elevated. Hemoglobin and hematocrit were noted. Chest x-ray from today was reviewed, revealing no significant infiltrates and consolidation, some increased lung markings, possibly pleural thickening. IMPRESSION: 1. Hypoxemia, suspect secondary to hypoventilation and mild atelectasis. 2. Large intraparenchymal hemorrhage of the left parietal lobe following TPA for ischemic stroke. 4. Possible seizure. 5. Hypertension. PLAN: 1. Respiratory status appears to be compensated. We will continue support with oxygen supplementation and aggressive pulmonary hygiene, the patient currently not following any commands. Unable to perform incentive spirometry. 2. Follow Neurology input. 3. Monitor blood pressure closely. 4. MRI of the brain pending. 5. Possible PEG in the future. I do appreciate the privilege in sharing in the patient's care. CLARK/AMARIS DR: Kaylah TID: [id number]
--- NOTE | 2021-09-29 13:52 | RAD ---
EXAMINATION: Magnetic resonance imaging (MRI) of the brain and brainstem without contrast 09/29/2021 11 :55 AM HISTORY: Intracranial hemorrhage status post TPA TECHNIQUE: Multiplanar multi-weighted MRI of the brain and brainstem was performed without intravenou s contrast using the general brain protocol. COMPARISON: CT head 09/26/2021. FINDINGS: Evaluation degraded by motion artifact. Fluid hematocrit level is identified within the left frontoparietal lobes with a hematoma measuring 6 .4 x 4.2 x 6.6 cm, not significantly changed in size since the prior head CT. There is associated int raventricular hemorrhage, stable. There is midline shift to the right by 8 mm which is unchanged. The re is associated sulcal effacement. There is mass effect on the occipital horn of left lateral ventri ophelia without hydrocephalus. No trapping of the temporal horns. Degree of hemorrhage limits evaluation for diffusion abnormality. Ventricles, sulci and basal cisterns are prominent compatible with mild to moderate generalized cerebral volume loss. The scalp and calvarium are normal. The superior sagittal sinus demonstrates normal venous flow. The corpus callosum is normal in shape and signal intensity. The posterior fossa is unremarkable. The p ituitary and sella are normal. The brainstem and craniocervical junction are unremarkable. There is complete opacification the right maxillary sinus. Fluid identified at the left maxillary sin us. The visualized portions of the mastoids are unremarkable. The orbits appear normal. Normal flow voids are demonstrated in the carotid arteries and basilar artery. IMPRESSION: 1. There is similar appearance of left frontoparietal intraparenchymal hematoma with associated cytot oxic/vasogenic edema and mass effect and midline shift to the right by 8 mm, stable. There is similar intraventricular hemorrhage without noy hydrocephalus. Intraventricular hemorrhage appears grossly stable given differences in modality. Minimal layering blood products within the fourth ventricle. 2. No new areas of hemorrhage identified. Electronically signed by: Padmini Bennett MD (09/29/2021 1:50 PM) [id number]
[2021-09-29] MEDS: AA 4.25 %/CALCIUM/LYTES/D5W 1,000 ML IV SCH (14:13)
--- NOTE | 2021-09-29 15:13 | CARD ---
MR#: [id number] Date of Study: 09/29/2021 Ordering Physician: NICKIE CAMILO, Referring Physician: NICKIE CAMILO, Tech: Estelita Florez [facility] APPROVED REPORT EXAM: Two-dimensional and M-mode echocardiogram with Doppler and color Doppler. Other Information Quality : Technically LimitedHR: 102bpm Rhythm : Tachycardia INDICATION COPD Dyspnea RISK FACTORS Hypertension Smoking 2D DIMENSIONS RVDd3.4 (2.9-3.5cm)Left Atrium(2D)3.0 (1.6-4.0cm) IVSd1.0 (0.7-1.1cm)Aortic Root(2D)4.0 (2.0-3.7cm) LVDd4.0 (3.9-5.9cm)LVOT Diameter2.6 (1.8-2.4cm) PWd1.0 (0.7-1.1cm)LVDs2.6 (2.5-4.0cm) FS (%) 35.4 %SV46.0 ml LVEF(%)65.3 (>50%) Aortic Valve AoV Peak Darrel.113.7cm/sAoV VTI18.7cm AO Peak GR.5.2mmHgLVOT Peak Darrel.128.9cm/s AO Mean GR.2mmHgAVA (VMAX)6.01cm2 Mitral Valve MV E Lziitzfx48.2cm/sMV DECEL [id number] MV A Addywerl68.5cm/sE/A Ratio0.7 Pulmonary Valve PV Peak Exmiwpkw39.5cm/s Tricuspid Valve TR P. [id number]/sTR Peak Gr.41mmHg LEFT VENTRICLE The left ventricle is normal size. There is normal left ventricular wall thickness. The left ventricu lar systolic function is normal. Estimated ejection fraction 60%. There is normal LV segmental wall motion. Transmitral Doppler flow pattern is Grade I-abnormal relaxation pattern. RIGHT VENTRICLE The right ventricle is normal size. There is normal right ventricular wall thickness. The right ventr icular systolic function is normal. ATRIA The left atrium size is normal. The right atrium size is normal. The interatrial septum is intact wit h no evidence for an atrial septal defect or patent foramen ovale as noted on 2-D or Doppler imaging. AORTIC VALVE The aortic valve is normal in structure and function. Doppler and Color Flow revealed no significant aortic regurgitation. There is no significant aortic valvular stenosis. MITRAL VALVE The mitral valve is normal in structure and function. There is no evidence of mitral valve prolapse. There is no mitral valve stenosis. Doppler and Color-flow revealed trace mitral regurgitation. TRICUSPID VALVE The tricuspid valve is normal in structure and function. Doppler and Color Flow revealed trace tricus pid regurgitation. Estimated PAP 45-55 mmHg. There is no tricuspid valve stenosis. PULMONIC VALVE The pulmonary valve is normal in structure and function. Doppler and Color Flow revealed no pulmonic valvular regurgitation. GREAT VESSELS The aortic root is mildly enlarged. The ascending aorta is Mildly dilated. The IVC was not visualized . PERICARDIAL EFFUSION There is no evidence of significant pericardial effusion. Critical Notification Critical Value: No <Conclusion> The left ventricular systolic function is normal. Estimated ejection fraction 60%. There is normal LV segmental wall motion. Transmitral Doppler flow pattern is Grade I-abnormal relaxation pattern. Trace mitral regurgitation. Trace tricuspid regurgitation. Estimated PAP 45-55 mmHg. There is no evidence of significant pericardial effusion. Signed by : Orlin Hernandez, Electronically Approved : 09/29/2021 15:13:10
[2021-09-30] VITALS (7 sets, daily range): BP systolic 143–177; BP diastolic 78–104
[2021-09-30] MEDS: AA 4.25 %/CALCIUM/LYTES/D5W 1,000 ML IV SCH ×2 (04:01→18:01)
[2021-09-30] MEDS: METOPROLOL IV PUSH 5 MG/5 ML VIAL. IVP PRN (04:04)
[2021-09-30] MEDS: PIPERACILLIN/TAZOBACTAM 3.375 GM in IV NORMAL SALINE 50ML 50 ML IV SCH ×4 (05:52→23:33)
--- NOTE | 2021-09-30 08:46 | PDOC ---
PROGRESS NOTES Date of Service DATE: 09/30/21 TIME: 08:42 Assessment Large intraparenchymal hemorrhage of the left parietal lobe following alteplase given for clinically a small ischemic stroke, clinically unchanged, no change on MRI Carotid Dopplers were done, he already had CT angiogram at [facility] He had some possible seizure activity but no recurrence Has not seen a physician in 45 years Plan Rehabilitation modalities Hold anticoagulation Blood pressure goal less than 150/90 ICU monitoring Will need PEG Discussed with daughter Ailyn Subjective None Objective Vital Signs Date Time Temp Pulse Resp B/P (MAP) Pulse Ox O2 Delivery O2 Flow Rate FiO2 09/30/21 04:04 130 173/96 09/30/21 04:00 98.1 22 4 Nasal Cannula 3.0 98.1 Intake and Output 09/30/21 07:00 Intake Total 2047 ml Output Total 300 ml Balance 1747 ml IV Total 2047 ml Output Urine Total 300 ml # Voids 3 PHYSICAL EXAM Eyes open, does not follow commands, does regard observer PERRL. EOMI. CN: Right field cut to threat, right central facial weakness Muscle tone: normal. Muscle strength: Right hemiparesis DTR: 2+ Plantar reflex: Flexor Gait: not examined Sensory exam: Not cooperative. Cerebellar:Not cooperative Review of Relevant I have reviewed the following items chapito (where applicable) has been applied. Medications Current Medications Ondansetron HCl (Zofran) 4 mg PRN Q6HRS PRN IVP NAUSEA/VOMITING; Start 09/25/21 at 20:00 Info (Icu Electrolyte Protocol) 1 ea DAILY MC Last administered on 09/28/21at 09:00; Start 09/26/21 at 09:00 Sodium Chloride (Normal Saline Flush) 3 ml QSHIFT PRN IV AFTER MEDS AND BLOOD DRAWS; Start 09/25/21 at 20:00 Sodium Chloride 1,000 ml @ 1,000 mls/hr Q1H IV Last administered on 09/25/21at 21:59; Start 09/25/21 at 20:00; Stop 09/25/21 at 20:59; Status DC Senna/Docusate Sodium (Senna Plus) 1 tab BID PO ; Start 09/25/21 at 21:00 Levetiracetam 100 ml @ 400 mls/hr 1X ONCE IV Last administered on 09/25/21at 22:26; Start 09/25/21 at 22:00; Stop 09/25/21 at 22:14; Status DC Lorazepam (Ativan Inj) 2 mg PRN Q4HRS PRN IVP AGITATION SEIZURE Last administered on 09/30/21at 03:03; Start 09/25/21 at 20:00 Hydralazine HCl (Apresoline Inj) 10 mg PRN Q4HRS PRN IVP ELEVATED BP, SEE COMMENTS Last administered on 09/29/21at 04:21; Start 09/25/21 at 20:00 Nicardipine HCl 50 mg/Sodium Chloride 250 ml @ 25 mls/hr CONT PRN IV PER PROTOCOL Last administered on 09/25/21at 22:44; Start 09/25/21 at 21:45; Stop 09/26/21 at 08:48; Status DC Info (Review Meds) 1 ea PRN 1X PRN MC SEE COMMENTS; Start 09/26/21 at 08:30 Acetaminophen (Tylenol Supp) 650 mg PRN Q6HRS PRN TN FEVER > 100.5'F or 38'C; Start 09/26/21 at 08:30 Nicardipine HCl 50 mg/Sodium Chloride 250 ml @ 25 mls/hr CONT PRN IV HYPERTENSION Last administered on 09/27/21at 20:04; Start 09/26/21 at 08:30 Labetalol HCl (Normodyne Iv Push) 10 mg PRN Q10MIN PRN IVP HYPERTENSION; Start 09/28/21 at 14:30 Metoprolol Tartrate (Lopressor Vial) 5 mg PRN Q5MIN PRN IVP TACHYCARDIA Last administered on 09/30/21at 04:04; Start 09/28/21 at 14:30 Sodium Chloride 1,000 ml @ 75 mls/hr [id number] IV Last administered on 09/29/21at 05:24; Start 09/28/21 at 18:30; Stop 09/29/21 at 12:00; Status DC Perflutren Protein Type A Microsphe (Optison) 0.66 mg 1X ONCE IV ; Start 09/29/21 at 08:15; Stop 09/29/21 at 08:16; Status DC Piperacillin Sod/ Tazobactam Sod (Zosyn Per Pharmacy) 1 each PRN DAILY PRN MC SEE COMMENTS; Start 09/29/21 at 11:00 Piperacillin Sod/ Tazobactam Sod 3.375 gm/Sodium Chloride 50 ml @ 100 mls/hr Q6HRS IV Last administered on 09/30/21at 05:52; Start 09/29/21 at 11:30 Amino Acids/ Electrolytes/ Dextrose 1,000 ml @ 75 mls/hr [id number] IV Last administered on 09/30/21at 04:01; Start 09/29/21 at 12:00 Vitals/I & O Vital Sign - Last 24 Hours 09/29/21 09/29/21 09/29/21 09/29/21 09:00 10:00 11:00 11:51 Pulse 114 114 118 117 Resp B/P (MAP) 156/77 150/76 153/87 165/97 Pulse Ox 92 93 92 O2 Delivery Nasal Cannula Nasal Cannula Nasal Cannula O2 Flow Rate 3.0 3.0 3.0 09/29/21 09/29/21 09/29/21 09/29/21 12:00 12:00 14:00 15:00 Temp 98.9 98.9 Pulse 106 108 108 Resp B/P (MAP) 154/85 154/83 159/100 Pulse Ox 92 92 91 O2 Delivery Nasal Cannula Nasal Cannula Nasal Cannula Nasal Cannula O2 Flow Rate 3.0 3.0 3.0 3.0 09/29/21 09/29/21 09/29/21 09/29/21 16:00 16:00 17:00 18:00 Temp 98.8 98.8 Pulse 110 108 108 B/P (MAP) 149/84 156/92 163/93 Pulse Ox 93 91 93 O2 Delivery Nasal Cannula Nasal Cannula Nasal Cannula Nasal Cannula O2 Flow Rate 3.0 3.0 3.0 3.0 09/29/21 09/29/21 09/30/21 09/30/21 19:00 20:00 00:00 00:30 Temp 98.1 98.1 98.1 98.1 Pulse 108 110 B/P (MAP) 158/88 (111) 160/90 (113) 143/88 (106) Pulse Ox 91 91 O2 Delivery Nasal Cannula Nasal Cannula Nasal Cannula O2 Flow Rate 3.0 3.0 3.0 09/30/21 09/30/21 04:00 04:04 Temp 98.1 98.1 Pulse 112 130 Resp 22 B/P (MAP) 164/90 (114) 173/96 Pulse Ox 4 O2 Delivery Nasal Cannula O2 Flow Rate 3.0 Intake and Output 09/29/21 09/29/21 09/30/21 15:00 23:00 07:00 Intake Total 50 ml 1094 ml 903 ml Output Total 50 ml 150 ml 100 ml Balance 0 ml 944 ml 803 ml Images Magnetic resonance imaging (MRI) of the brain and brainstem without contrast 09/29/2021 11:55 AM HISTORY: Intracranial hemorrhage status post TPA TECHNIQUE: Multiplanar multi-weighted MRI of the brain and brainstem was performed without intravenous contrast using the general brain protocol. COMPARISON: CT head 09/26/2021. FINDINGS: Evaluation degraded by motion artifact. Fluid hematocrit level is identified within the left frontoparietal lobes with a hematoma measuring 6.4 x 4.2 x 6.6 cm, not significantly changed in size since the prior head CT. There is associated intraventricular hemorrhage, stable. There is midline shift to the right by 8 mm which is unchanged. There is asso ciated sulcal effacement. There is mass effect on the occipital horn of left lateral ventricle without hydrocephalus. No trapping of the temporal horns. Degree of hemorrhage limits evaluation for diffusion abnormality. Ventricles, sulci and basal cisterns are prominent compatible with mild to moderate generalized cerebral volume loss. The scalp and calvarium are normal. The superior sagittal sinus demonstrates normal venous flow. The corpus callosum is normal in shape and signal intensity. The posterior fossa is unremarkable. The pituitary and sella are normal. The brainstem and craniocervical junction are unremarkable. There is complete opacification the right maxillary sinus. Fluid identified at the left maxillary sinus. The visualized portions of the mastoids are unremarkable. The orbits appear normal. Normal flow voids are demonstrated in the carotid arteries and basilar artery. IMPRESSION: 1. There is similar appearance of left frontoparietal intraparenchymal hematoma with associated cytotoxic/vasogenic edema and mass effect and midline shift to the right by 8 mm, stable. There is similar intraventricular hemorrhage without noy hydrocephalus. Intraventricular hemorrhage appears grossly stable given differences in modality. Minimal layering blood products within the fourth ventricle. 2. No new areas of hemorrhage identified. US DPLX CAROTID BILAT CLINICAL HISTORY: Stroke. TECHNIQUE: Evaluation of the bilateral carotid, vertebral, and subclavian arteries performed with salzaar scale, color Doppler, and spectral Doppler sonographic imaging. COMPARISON: None FINDINGS: Left carotid arterial system not evaluated due to patient's inability to turn their head for necessary positioning in order to visualize the arteries. CCA Peak Systolic Velocity (cm/sec): Right: 85 ICA Peak Systolic Velocity (cm/sec): Right: 81 ICA End Diastolic Velocity (cm/sec): Right: 11 ECA Peak Systolic Velocity (cm/sec): Right: 107 Vertebrals (cm/sec): Right: 52 Subclavians (cm/sec): Right: 107 ICA/CCA Systolic Velocity Ratio: Right: 1.0 Plaque distribution: Scattered calcified plaque, greatest in the right carotid bulb. IMPRESSION: No evidence of hemodynamically significant stenosis in the right carotid arterial system. Left carotid arterial system not evaluated as described. Echocardiogram LEFT VENTRICLE The left ventricle is normal size. There is normal left ventricular wall thickness. The left ventricular systolic function is normal. Estimated ejection fraction 60%. There is normal LV segmental wall motion. Transmitral Doppler flow pattern is Grade I-abnormal relaxation pattern. RIGHT VENTRICLE The right ventricle is normal size. There is normal right ventricular wall thickness. The right ventricular systolic function is normal. ATRIA The left atrium size is normal. The right atrium size is normal. The interatrial septum is intact with no evidence for an atrial septal defect or patent foramen ovale as noted on 2-D or Doppler imaging. AORTIC VALVE The aortic valve is normal in structure and function. Doppler and Color Flow revealed no significant aortic regurgitation. There is no significant aortic valvular stenosis. MITRAL VALVE The mitral valve is normal in structure and function. There is no evidence of mitral valve prolapse. There is no mitral valve stenosis. Doppler and Color-flow revealed trace mitral regurgitation. TRICUSPID VALVE The tricuspid valve is normal in structure and function. Doppler and Color Flow revealed trace tricuspid regurgitation. Estimated PAP 45-55 mmHg. There is no tricuspid valve stenosis. PULMONIC VALVE The pulmonary valve is normal in structure and function. Doppler and Color Flow revealed no pulmonic valvular regurgitation. GREAT VESSELS The aortic root is mildly enlarged. The ascending aorta is Mildly dilated. The IVC was not visualized. PERICARDIAL EFFUSION There is no evidence of significant pericardial effusion. Critical Notification Critical Value: No <Conclusion> The left ventricular systolic function is normal. Estimated ejection fraction 60%. There is normal LV segmental wall motion. Transmitral Doppler flow pattern is Grade I-abnormal relaxation pattern. Trace mitral regurgitation. Trace tricuspid regurgitation. Estimated PAP 45-55 mmHg. There is no evidence of significant pericardial effusion. Justicifation of Admission Dx: Justifications for Admission: Justification of Admission Dx: Yes Acute Hemorrhagic Stroke: Acute Hemorrhagic Stroke NICKIE CAMILO MD Sep 30, 2021 08:46
[2021-09-30] MEDS: SENNOSIDES/DOCUSATE 8.6/50MG TABLET. PO SCH ×2 (09:00→21:00)
[2021-09-30] MEDS: ELECTROLYTE (ICU) PROTOCOL. MC SCH (09:00)
--- NOTE | 2021-09-30 09:21 | PDOC ---
PULMONARY PROGRESS NOTES DATE: 09/30/21 TIME: 09:21 Subjective Patient nonverbal nonresponsive to verbal stimuli no signs of respiratory distress Vitals Vital Signs Date Time Temp Pulse Resp B/P (MAP) Pulse Ox O2 Delivery O2 Flow Rate FiO2 09/30/21 04:04 130 173/96 09/30/21 04:00 98.1 22 4 Nasal Cannula 3.0 98.1 ROS: No Nausea, No Chest Pain, No Abdominal Pain, No Increase Cough General: Alert Lungs: Clear Cardiovascular: S1, S2 Abdomen: Soft, Non-tender Neuro Exam: Alert Extremities: No Edema Skin: Warm Impression . IMPRESSION: 1. Hypoxemia, suspect secondary to hypoventilation and mild atelectasis. 2. Large intraparenchymal hemorrhage of the left parietal lobe following TPA for ischemic stroke. 4. Possible seizure. 5. Hypertension. Plan . 09/29 Continue oxygen supplementation Aggressive pulmonary hygiene Follow neurology input, MRI no change GI has been consulted for PEG PLAN: 1. Respiratory status appears to be compensated. We will continue support with oxygen supplementation and aggressive pulmonary hygiene, the patient currently not following any commands. Unable to perform incentive spirometry. 2. Follow Neurology input. 3. Monitor blood pressure closely. 4. MRI of the brain pending. 5. Possible PEG in the future. I do appreciate the privilege in sharing in the patient's care. GRZEGORZ LOERA MD Sep 30, 2021 09:21
--- NOTE | 2021-09-30 11:40 | PDOC2 ---
GI CONSULT Date of Service: DATE: 09/30/21 TIME: 11:22 Reason For Consult: PEG HPI: HPI: 81 y/o male evaluated at [facility] on 09/25 for right arm and leg weakness with some shaking of the right side, s/p large intraparenchymal hemorrhage of left parietal lobe following alteplase. D/w EMERGENCY ROOM REGISTERED NURSE and Dr. Cuellar earlier today. We are asked to see for possible PEG placement. Per nurse, plans to continue w/ PPN, stop other fluids. Cardiology following for tachycardia. D/w pt's daughter Ailyn at bedside who is a nurse. She is unaware of any chronic GI issues - in past looked after by his son, didn't really go tot he doctor - "he'd go to urgent care for stitches." PMH: PMH: - FH: Family History: No pertinent hx Social History: Smoke: Quit ROS: unable to obtain Vitals: Vitals: Vital Signs Date Time Temp Pulse Resp B/P (MAP) Pulse Ox O2 Delivery O2 Flow Rate FiO2 09/30/21 04:04 130 173/96 09/30/21 04:00 98.1 22 4 Nasal Cannula 3.0 98.1 Allergies: Coded Allergies: No Known Drug Allergies (Unverified , 09/25/21) Medications: Current Medications Medications (Trade) Dose Ordered Sig/Isaac Route PRN Reason Start Time Stop Time Status Last Admin Dose Admin Piperacillin Sod/ Tazobactam Sod 3.375 gm/Sodium Chloride 50 ml @ 100 mls/hr Q6HRS IV 09/29/21 11:30 09/30/21 05:52 Amino Acids/ Electrolytes/ Dextrose 1,000 ml @ 75 mls/hr [id number] IV 09/29/21 12:00 09/30/21 04:01 Imaging: Imaging: Head CT 09/25 IMPRESSION: Large intraparenchymal bleed identified in the left posterior parietooccipital lobe causing mild effacement of the sulci with mild mass effect. There is minimal 2 mm [id number] midline shift. Head CT 09/26 Impression: Left parietal acute intraparenchymal hemorrhage is slightly larger in size allowing for differences in patient's positioning. Increased mass effect on the left lateral ventricle. Unchanged 2 mm left to right midline shift. Patent basilar cisterns. Brain MRI 09/29 IMPRESSION: 1. There is similar appearance of left frontoparietal intraparenchymal hematoma with associated cytotoxic/vasogenic edema and mass effect and midline shift to the right by 8 mm, stable. There is similar intraventricular hemorrhage without noy hydrocephalus. Intraventricular hemorrhage appears grossly stable given differences in modality. Minimal layering blood products within the fourth ventricle. 2. No new areas of hemorrhage identified. Carotid Doppler 09/29 IMPRESSION: No evidence of hemodynamically significant stenosis in the right carotid arterial system. Left carotid arterial system not evaluated as described. CXR 09/29 IMPRESSION: New mild interstitial and patchy bibasilar alveolar opacities with questionable pleural effusions, possibly related to volume overload. Echo 09/29 <Conclusion> The left ventricular systolic function is normal. Estimated ejection fraction 60%. There is normal LV segmental wall motion. Transmitral Doppler flow pattern is Grade I-abnormal relaxation pattern. Trace mitral regurgitation. Trace tricuspid regurgitation. Estimated PAP 45-55 mmHg. There is no evidence of significant pericardial effusion. EMERGENCY ROOM REGISTERED NURSE 4/ EMERGENCY ROOM REGISTERED NURSE Bedside Swallow Eval: Pt demo's severe neurogenic dysphagia c/w acute ICH and ischemic CVA. Decreased hyolaryngeal mvmt likely contributes to decreased airway protection and pharyngeal residues which enter airway immediately post swallow &/or after residue accumulation from 2-3 swallows. High risk for aspiration w/ all PO intake. Also suspect add'l aspiration on own secretions, given inability to independently clear own secretions and wet sounding respirations and wet suzanne nation prior to PO trials. Duration of need for NPO dependent on progress over next 1-3 days. See full report in Interventions. Recommendations: Continue NPO and aggressive oral care. Will continue EMERGENCY ROOM REGISTERED NURSE f/u per POC to address dysphagia. PE: GEN: NAD HEENT: Atraumatic LUNGS: coarseness anteriorly, NC 3L HEART: tachycardic ABD: NABS, S/ND/NT EXTREMITY: No edema SKIN: No rashes, no jaundice NEURO/PSYCH: did not awaken during exam A/P: A/P: Left parietal lobe hemorrhage, abnormal swallow eval Leukocytosis, tachycardia, hypoxia/abnormal CXR -- Discussed PEG procedure and possible risks - pt's daughter is agreeable, also says her only hesitation would be if he were to indicate he didn't want it - she's hopeful he might be able to communicate this. For now, check INR and monitor resp status. SALUD ESPARZA Sep 30, 2021 11:40
--- NOTE | 2021-09-30 12:44 | PDOC ---
[employer] PROGRESS NOTE Date of Service DOS: DATE: 09/30/21 TIME: 12:42 Chief Complaint Chief Complaint Large left intraparenchymal hemorrhage after TPAe 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 Has not seen a doctor in decades Tobacco abuse x60 years Hypoxia Leukocytosis Tachycardia Right neglect Possible aspiration pneumonia History of Present Illness History of Present Illness 09/30/2021 Patient seen and examined in the ICU He is resting comfortably apparently was exhausted after speech therapy eval I called GI as he apparently needs a PEG tube I called community mental health social worker to speak with his daughter regarding possible [facility] Spoke with case management Chart reviewed 09/29/2021 Patient seen and examined in the ICU He remains critically ill Has a glove on the left hand Right hand and arm not able to move He does not move his right leg either He appears to neglect his right side 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 Afebrile. S/P tPA with hemorrhagic conversion. Neurosurgery consulted. Continue nicardipine drip with goal blood [id number] mmHg. Appears to be in rate controlled A. fib. He is somewhat somnolent. Critical care time 30 minutes spent reviewing charts, reviewing labs, reviewing imaging, discussion with RN. 09/27: Patient seen in ICU. Afebrile, tachycardic. S/P TPA with hemorrhagic conversion. Continue to manage blood pressure with IV nicardipine, but essentially no change. Plan is for echocardiogram and MRI when clinical course improves. Critical care time 30 minutes spent reviewing charts, reviewing labs, reviewing imaging, discussion with RN. 09/28: Patient seen in ICU. Afebrile, remains somewhat tachycardic. He is clinically unchanged. We will continue to monitor in ICU. PT/OT/ST following. If patient fails a swallow study test, which is highly likely, will need to provide nutrition with NG tube. Spent a considerable amount of time with daughter discussing plan of care. He is COVID-[address] [facility], so immunocompromised family members may come and visit him. Critical care time 30 minutes spent reviewing charts, reviewing labs, reviewing imaging, discussion with daughter, discussion with RN. 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 has right neglect General: mild distress, Other (Does answer questions but slowly and kind of mumbles cannot move his right side) Heart: Other (Tachycardic) Lungs: Clear, Other (He has a cough not able to handle his secretions very well) Abdomen: Soft Extremities: No clubbing, No cyanosis Skin: No rashes, No breakdown Assessment and Plan Assessmemt and Plan Large left intraparenchymal hemorrhage after TPAe 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 Has not seen a doctor in decades Tobacco abuse x60 years Hypoxia Leukocytosis Tachycardia Right neglect Possible aspiration pneumonia Plan ICU monitoring Appreciate pulmonary cardiology and GI input Ordered empiric Zosyn Consult pulmonary He is likely going to need a PEG tube I started PPN Trend labs DVT prophylaxis Full code Suspect he will need to go to [facility] rehab or some other high-level rehabilitation unit Long-term prognosis guarded CC time 34 Comment Review of Relevant I have reviewed the following items chapito (where applicable) has been applied. Justifications for Admission Other Justification HUSSEIN RICHEY III DO Sep 30, 2021 12:44
[2021-09-30 13:29] LABS: PROTHROMBIN TIME PATIENT 14.2 SEC (11.7-14.0)
--- NOTE | 2021-09-30 13:35 | PDOC2 ---
ELMER FOSTER LIFT SUPERVISOR 09/30/21 1335: CARDIAC CONSULT DATE OF CONSULT Date of Consult DATE: 09/30/21 TIME: 13:24 REASON FOR CONSULT Reason for Consult: Tachycardia REFERRING PHYSICIAN Referring Physician: Polo SOURCE Source: Chart review HISTORY OF PRESENT ILLNESS HISTORY OF PRESENT ILLNESS This is an 81 yo male admitted for right sided neuro deficits. He was initially at [facility]. He has having right arm weakness and was tPA. His sympto ms progressed to a point that he was unable to follow commands and nonverbal and then noted with Large intraparenchymal hemorrhage of the left parietal lobe and mild midline shift. He was then evaluated by neurosurgery. No he is dysphagic and GI to see him for PEG placmenet. Consult is for tachycardia. To point out he has not seen a PCP at least last 4 decades. He is presently nonverbal and hard to wake up. RN reported that he was more awake earlier. He currently has sinus tachycardia with frequent PVCs. PAST MEDICAL HISTORY Past Medical History None known PAST SURGICAL HISTORY Past Surgical History: No pertinent history FAMILY HISTORY Family History: Family History Unknown SOCIAL HISTORY Social History unknown ALLERGIES ALLERGIES: Coded Allergies: No Known Drug Allergies (Unverified , 09/25/21) ROS Review of System unreliable PHYSICAL EXAM General: No acute distress, Other (very drowsy) HEENT: Atraumatic, Mucous membr. moist/pink Lungs: Other (diminished bases) Heart: Regular rate (ST), Normal S1, Normal S2, No murmurs Abdomen: Soft Extremities: No cyanosis, No edema Skin: No breakdown, No significant lesion Neuro: Other (nonverbal) Psych/Mental Status: Other (drowsy) MUSCULOSKELETAL: Osteoarthritic changes both hands VITALS/I&O VITALS/I&O: Vital Signs Date Time Temp Pulse Resp B/P (MAP) Pulse Ox O2 Delivery O2 Flow Rate FiO2 09/30/21 04:04 130 173/96 09/30/21 04:00 98.1 22 4 Nasal Cannula 3.0 98.1 I & O 09/29/21 09/29/21 09/30/21 15:00 23:00 07:00 Intake Total 50 ml 1094 ml 903 ml Output Total 50 ml 150 ml 100 ml Balance 0 ml 944 ml 803 ml ASSESSMENT/PLAN ASSESSMENT/PLAN 1. 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 2. CVA 3. HTN: labile episodes. SBP in the 140s EF andLLV WM nml 4. Reactive sinus tachycardia with PVCs: physiologic with above neurological issue 5. Dysphagia: possible PEG per GI 6. Hypoxia: better with O2. pulmonary following 7. Moderate pulmonary HTN 8. Encephalopathy: very drowsy Recommendations 1. Low dose IV lopressor 2. BMP and Mg. TTE reviewed 3. Labetolol PRN for consistently high BP 4. Supportive care MARCI DRAKE MD 09/30/21 9198: CARDIAC CONSULT ASSESSMENT/PLAN ASSESSMENT/PLAN Patient seen and examined. Agree with TEACHING ARTIST's assessment and plan. Telemetry showed sinus tachycardia, most probably reactive/physiologic, with PACs and PVCs 2D echo showed normal LV systolic function without any significant structural abnormalities Acute CVA complicated by large intraparenchymal hemorrhage of left parietal lobe post TPA -neurology following GI team planning PEG tube placement for dysphagia Thank you for your consultation ELMER FOSTER APRN Sep 30, 2021 13:35 MARCI DRAKE MD Sep 30, 2021 16:28
[2021-09-30 14:08] LABS: CHOLESTEROL/HDL RATIO 2.6
[2021-09-30 14:44] LABS: CREATININE 0.7 mg/dL (0.7-1.3); GFR 107.7; POTASSIUM 3.2 mmol/L (3.5-5.1)
--- NOTE | 2021-09-30 15:46 | EKG ---
[facility] [address] [place] [address] Test Date: 2021-09-30 Test Time: 15:32:23 Pat Name: HORTENCIA PALMER Department: Room: 110 1 Gender: M Casting Carrier: YAMILA : 1940 Requested By: ELMER FOSTER Order Number: [id number] Reading MD: Orlin Hernandez Measurements Intervals [place] Rate: 123 P: 39 KS: 78 QRS: 16 QRSD: 72 T: -26 QT: 300 QTc: 435 Interpretive Statements SINUS TACHYCARDIA VENTRICULAR PREMATURE COMPLEX(ES) LEFT ATRIAL ABNORMALITY T ABNORMALITY IN ANTERIOR LEADS ABNORMAL ECG RI6.02 No previous ECG available for comparison Electronically Signed On 10-11-2021 9:39:55 CDT by Orlin Hernandez
[2021-09-30] MEDS: POTASSIUM CHLORIDE 10MEQ 100 ML IV SCH ×2 (17:00→18:02)
[2021-09-30] MEDS: METOPROLOL IV PUSH 5 MG/5 ML VIAL. IVP SCH ×3 (18:04→23:33)
--- NOTE | 2021-09-30 20:58 | NUR ---
Unable to clear airway-NT suction required. Fights suctioning. Peg placement discussed w pt daughter in next couple days. Agreeable to plan. Dr Cuellar at bedside POC in detail. condition remains guarded.
[2021-09-30] MEDS: IV RINGERS,LACTATED 1000ML 1,000 ML IV SCH (21:00)
--- NOTE | 2021-09-30 21:06 | NUR ---
Possibility of peg may be temporarily deferred. ? cereberal HTN. See GI note for specifics.
[2021-10-01] VITALS (8 sets, daily range): BP systolic 130–159; BP diastolic 70–91
[2021-10-01] MEDS: LABETALOL 20 MG/4 ML DISP.SYRIN. IVP PRN (00:43)
[2021-10-01] MEDS: PIPERACILLIN/TAZOBACTAM 3.375 GM in IV NORMAL SALINE 50ML 50 ML IV SCH ×3 (05:34→17:24)
[2021-10-01] MEDS: METOPROLOL IV PUSH 5 MG/5 ML VIAL. IVP SCH ×3 (05:36→17:24)
[2021-10-01 05:40] LABS: CALCIUM 8.9 mg/dL (8.5-10.1); CREATININE 0.8 mg/dL (0.7-1.3); GFR 92.3; POTASSIUM 3.6 mmol/L (3.5-5.1)
[2021-10-01] MEDS: ACETAMINOPHEN 650 MG SUPP.RECT. PR PRN (07:31)
[2021-10-01] MEDS: SENNOSIDES/DOCUSATE 8.6/50MG TABLET. PO SCH ×2 (07:53→20:05)
[2021-10-01] MEDS: hydrALAZINE 20 MG/ML VIAL. IVP PRN (08:00)
--- NOTE | 2021-10-01 08:10 | PDOC ---
PULMONARY PROGRESS NOTES DATE: 10/01/21 TIME: 08:10 Subjective Patient nonverbal nonresponsive to verbal stimuli no signs of respiratory distress Vitals Vital Signs Date Time Temp Pulse Resp B/P (MAP) Pulse Ox O2 Delivery O2 Flow Rate FiO2 10/01/21 08:00 114 159/90 10/01/21 04:00 98.0 21 92 Nasal Cannula 3.0 98.0 ROS: No Nausea, No Chest Pain, No Abdominal Pain, No Increase Cough General: Alert Lungs: Clear Cardiovascular: S1, S2 Abdomen: Soft, Non-tender Neuro Exam: Alert Extremities: No Edema Skin: Warm Labs Laboratory Tests Test 09/30/21 12:40 10/01/21 04:15 Prothrombin Time 14.2 SEC (11.7-14.0) Prothromb Time International Ratio 1.1 (0.8-1.1) Sodium Level 150 mmol/L (136-145) 150 mmol/L (136-145) Potassium Level 3.2 mmol/L (3.5-5.1) 3.6 mmol/L (3.5-5.1) Chloride Level 115 mmol/L (98-107) 115 mmol/L (98-107) Carbon Dioxide Level 25 mmol/L (21-32) 28 mmol/L (21-32) Anion Gap 10 (6-14) 7 (6-14) Blood Urea Nitrogen 21 mg/dL (8-26) 22 mg/dL (8-26) Creatinine 0.7 mg/dL (0.7-1.3) 0.8 mg/dL (0.7-1.3) Estimated GFR (Cockcroft-Gault) 107.7 92.3 Glucose Level 183 mg/dL (70-99) 169 mg/dL (70-99) Calcium Level 9.0 mg/dL (8.5-10.1) 8.9 mg/dL (8.5-10.1) Magnesium Level 2.3 mg/dL (1.8-2.4) Triglycerides Level 62 mg/dL (0-150) Cholesterol Level 162 mg/dL (0-200) LDL Cholesterol, Calculated 87 mg/dL (0-100) VLDL Cholesterol, Calculated 12 mg/dL (0-40) Non-HDL Cholesterol Calculated 99 mg/dL (0-129) HDL Cholesterol 63 mg/dL (40-60) Cholesterol/HDL Ratio 2.6 Thyroid Stimulating Hormone (TSH) 1.005 uIU/mL (0.358-3.74) Laboratory Tests Test 09/30/21 12:40 10/01/21 04:15 Prothrombin Time 14.2 SEC (11.7-14.0) Prothromb Time International Ratio 1.1 (0.8-1.1) Sodium Level 150 mmol/L (136-145) 150 mmol/L (136-145) Potassium Level 3.2 mmol/L (3.5-5.1) 3.6 mmol/L (3.5-5.1) Chloride Level 115 mmol/L (98-107) 115 mmol/L (98-107) Carbon Dioxide Level 25 mmol/L (21-32) 28 mmol/L (21-32) Anion Gap 10 (6-14) 7 (6-14) Blood Urea Nitrogen 21 mg/dL (8-26) 22 mg/dL (8-26) Creatinine 0.7 mg/dL (0.7-1.3) 0.8 mg/dL (0.7-1.3) Estimated GFR (Cockcroft-Gault) 107.7 92.3 Glucose Level 183 mg/dL (70-99) 169 mg/dL (70-99) Calcium Level 9.0 mg/dL (8.5-10.1) 8.9 mg/dL (8.5-10.1) Magnesium Level 2.3 mg/dL (1.8-2.4) Triglycerides Level 62 mg/dL (0-150) Cholesterol Level 162 mg/dL (0-200) LDL Cholesterol, Calculated 87 mg/dL (0-100) VLDL Cholesterol, Calculated 12 mg/dL (0-40) Non-HDL Cholesterol Calculated 99 mg/dL (0-129) HDL Cholesterol 63 mg/dL (40-60) Cholesterol/HDL Ratio 2.6 Thyroid Stimulating Hormone (TSH) 1.005 uIU/mL (0.358-3.74) Impression . IMPRESSION: 1. Hypoxemia, suspect secondary to hypoventilation and mild atelectasis. 2. Large intraparenchymal hemorrhage of the left parietal lobe following TPA for ischemic stroke. 4. Possible seizure. 5. Hypertension. Plan . /5 Had fever, started on empiric antibiotics Continue close monitoring PEG could not be done secondary to increased intracranial pressures Continue oxygen supplementation Aggressive pulmonary hygiene Follow neurology input, MRI no change GRZEGORZ LOERA MD Oct 01, 2021 08:10
[2021-10-01] MEDS: ELECTROLYTE (ICU) PROTOCOL. MC SCH (09:00)
[2021-10-01] MEDS: AA 4.25 %/CALCIUM/LYTES/D5W 1,000 ML IV SCH ×2 (09:06→17:20)
--- NOTE | 2021-10-01 09:23 | PDOC ---
Date of Service: DATE: 10/01/21 TIME: 09:20 Objective: Objective: D/w nurse - plans for PICC placement - says briefly discussed PEG situation w/ daughter via phone this morning. Vital Signs: Vital Signs Date Time Temp Pulse Resp B/P (MAP) Pulse Ox O2 Delivery O2 Flow Rate FiO2 10/01/21 08:00 114 159/90 10/01/21 08:00 Nasal Cannula 3.0 10/01/21 04:00 98.0 21 92 98.0 Labs: Laboratory Tests Test 09/30/21 12:40 10/01/21 04:15 Prothrombin Time 14.2 SEC Prothromb Time International Ratio 1.1 Sodium Level 150 mmol/L 150 mmol/L Potassium Level 3.2 mmol/L 3.6 mmol/L Chloride Level 115 mmol/L 115 mmol/L Carbon Dioxide Level 25 mmol/L 28 mmol/L Anion Gap 10 7 Blood Urea Nitrogen 21 mg/dL 22 mg/dL Creatinine 0.7 mg/dL 0.8 mg/dL Estimated GFR (Cockcroft-Gault) 107.7 92.3 Glucose Level 183 mg/dL 169 mg/dL Calcium Level 9.0 mg/dL 8.9 mg/dL Magnesium Level 2.3 mg/dL Triglycerides Level 62 mg/dL Cholesterol Level 162 mg/dL LDL Cholesterol, Calculated 87 mg/dL VLDL Cholesterol, Calculated 12 mg/dL Non-HDL Cholesterol Calculated 99 mg/dL HDL Cholesterol 63 mg/dL Cholesterol/HDL Ratio 2.6 Thyroid Stimulating Hormone (TSH) 1.005 uIU/mL Imaging: CXR 10/01 pending PE: GEN: appears chronically ill LUNGS: upper airway coarseness, NC 3L HEART: tachycardic ABD: soft, non-distended NEURO/PSYCH: doesn't respond A/P: Left parietal lobe hemorrhage, CVA, dysphagia Tachycardia/PVCs, hypoxia -- Currently not a good PEG candidate w/ signs of intracranial hypertension. Justicifation of Admission Dx: Justifications for Admission: Justification of Admission Dx: Yes Acute Hemorrhagic Stroke: Acute Hemorrhagic Stroke SALUD ESPARZA Oct 01, 2021 09:23
--- NOTE | 2021-10-01 09:45 | RAD ---
XR CHEST 1V History: Reason: Worsening fluid overload/new onset pneumonia / Spl. Instructions: / History: Comparison: September 29, 2021 Findings: Increased small left pleural effusion. Increased mild patchy bibasilar opacities. No pneumothorax. Un changed heart size. Impression: 1. Increased small left pleural effusion. 2. Increased mild patchy bibasilar opacities, may represent atelectasis or developing infiltrates. Electronically signed by: Brayan Meyer DO (10/01/2021 9:42 AM) [id number]
--- NOTE | 2021-10-01 10:26 | PDOC ---
PROGRESS NOTES Date of Service DATE: 10/01/21 TIME: 10:25 Assessment Large intraparenchymal hemorrhage of the left parietal lobe following alteplase given for clinically a small ischemic stroke, clinically unchanged, no change on MRI Carotid Dopplers were done, he already had CT angiogram at [facility] He had some possible seizure activity but no recurrence Has not seen a physician in 45 years Plan Rehabilitation modalities Hold anticoagulation Blood pressure goal less than 150/90 Okay to downgrade from ICU status Will need PEG, GI has seen and wants to hold off given the size of the hemorrhage Repeat imaging studies as clinically indicated Subjective None Objective Vital Signs Date Time Temp Pulse Resp B/P (MAP) Pulse Ox O2 Delivery O2 Flow Rate FiO2 10/01/21 08:00 102.4 109 20 131/82 (98) 92 Nasal Cannula 3.0 102.4 Intake and Output 10/01/21 07:00 Intake Total 1653 ml Balance 1653 ml Intake Oral 0 ml IV Total 1653 ml # Voids 10 PHYSICAL EXAM Eyes open, does not follow commands, does regard observer PERRL. EOMI. CN: Right field cut to threat, right central facial weakness Muscle tone: normal. Muscle strength: Right hemiparesis DTR: 2+ Plantar reflex: Flexor Gait: not examined Sensory exam: Not cooperative. Cerebellar:Not cooperative Review of Relevant I have reviewed the following items chapito (where applicable) has been applied. Labs Laboratory Tests Test 09/30/21 12:40 10/01/21 04:15 Prothrombin Time 14.2 SEC (11.7-14.0) Prothromb Time International Ratio 1.1 (0.8-1.1) Sodium Level 150 mmol/L (136-145) 150 mmol/L (136-145) Potassium Level 3.2 mmol/L (3.5-5.1) 3.6 mmol/L (3.5-5.1) Chloride Level 115 mmol/L (98-107) 115 mmol/L (98-107) Carbon Dioxide Level 25 mmol/L (21-32) 28 mmol/L (21-32) Anion Gap 10 (6-14) 7 (6-14) Blood Urea Nitrogen 21 mg/dL (8-26) 22 mg/dL (8-26) Creatinine 0.7 mg/dL (0.7-1.3) 0.8 mg/dL (0.7-1.3) Estimated GFR (Cockcroft-Gault) 107.7 92.3 Glucose Level 183 mg/dL (70-99) 169 mg/dL (70-99) Calcium Level 9.0 mg/dL (8.5-10.1) 8.9 mg/dL (8.5-10.1) Magnesium Level 2.3 mg/dL (1.8-2.4) Triglycerides Level 62 mg/dL (0-150) Cholesterol Level 162 mg/dL (0-200) LDL Cholesterol, Calculated 87 mg/dL (0-100) VLDL Cholesterol, Calculated 12 mg/dL (0-40) Non-HDL Cholesterol Calculated 99 mg/dL (0-129) HDL Cholesterol 63 mg/dL (40-60) Cholesterol/HDL Ratio 2.6 Thyroid Stimulating Hormone (TSH) 1.005 uIU/mL (0.358-3.74) Laboratory Tests Test 09/30/21 12:40 10/01/21 04:15 Prothrombin Time 14.2 SEC (11.7-14.0) Prothromb Time International Ratio 1.1 (0.8-1.1) Sodium Level 150 mmol/L (136-145) 150 mmol/L (136-145) Potassium Level 3.2 mmol/L (3.5-5.1) 3.6 mmol/L (3.5-5.1) Chloride Level 115 mmol/L (98-107) 115 mmol/L (98-107) Carbon Dioxide Level 25 mmol/L (21-32) 28 mmol/L (21-32) Anion Gap 10 (6-14) 7 (6-14) Blood Urea Nitrogen 21 mg/dL (8-26) 22 mg/dL (8-26) Creatinine 0.7 mg/dL (0.7-1.3) 0.8 mg/dL (0.7-1.3) Estimated GFR (Cockcroft-Gault) 107.7 92.3 Glucose Level 183 mg/dL (70-99) 169 mg/dL (70-99) Calcium Level 9.0 mg/dL (8.5-10.1) 8.9 mg/dL (8.5-10.1) Magnesium Level 2.3 mg/dL (1.8-2.4) Triglycerides Level 62 mg/dL (0-150) Cholesterol Level 162 mg/dL (0-200) LDL Cholesterol, Calculated 87 mg/dL (0-100) VLDL Cholesterol, Calculated 12 mg/dL (0-40) Non-HDL Cholesterol Calculated 99 mg/dL (0-129) HDL Cholesterol 63 mg/dL (40-60) Cholesterol/HDL Ratio 2.6 Thyroid Stimulating Hormone (TSH) 1.005 uIU/mL (0.358-3.74) Medications Current Medications Ondansetron HCl (Zofran) 4 mg PRN Q6HRS PRN IVP NAUSEA/VOMITING; Start 09/25/21 at 20:00 Info (Icu Electrolyte Protocol) 1 ea DAILY MC Last administered on 09/30/21at 09:00; Start 09/26/21 at 09:00 Sodium Chloride (Normal Saline Flush) 3 ml QSHIFT PRN IV AFTER MEDS AND BLOOD DRAWS; Start 09/25/21 at 20:00 Sodium Chloride 1,000 ml @ 1,000 mls/hr Q1H IV Last administered on 09/25/21at 21:59; Start 09/25/21 at 20:00; Stop 09/25/21 at 20:59; Status DC Senna/Docusate Sodium (Senna Plus) 1 tab BID PO ; Start 09/25/21 at 21:00 Levetiracetam 100 ml @ 400 mls/hr 1X ONCE IV Last administered on 09/25/21at 22:26; Start 09/25/21 at 22:00; Stop 09/25/21 at 22:14; Status DC Lorazepam (Ativan Inj) 2 mg PRN Q4HRS PRN IVP AGITATION SEIZURE Last administered on 09/30/21at 03:03; Start 09/25/21 at 20:00 Hydralazine HCl (Apresoline Inj) 10 mg PRN Q4HRS PRN IVP ELEVATED BP, SEE COMMENTS Last administered on 10/01/21at 08:00; Start 09/25/21 at 20:00 Nicardipine HCl 50 mg/Sodium Chloride 250 ml @ 25 mls/hr CONT PRN IV PER PROTOCOL Last administered on 09/25/21at 22:44; Start 09/25/21 at 21:45; Stop 09/26/21 at 08:48; Status DC Info (Review Meds) 1 ea PRN 1X PRN MC SEE COMMENTS; Start 09/26/21 at 08:30 Acetaminophen (Tylenol Supp) 650 mg PRN Q6HRS PRN ME FEVER > 100.5'F or 38'C Last administered on 10/01/21at 07:31; Start 09/26/21 at 08:30 Nicardipine HCl 50 mg/Sodium Chloride 250 ml @ 25 mls/hr CONT PRN IV HYPERTENSION, see comments Last administered on 09/27/21at 20:04; Start 09/26/21 at 08:30 Labetalol HCl (Normodyne Iv Push) 10 mg PRN Q10MIN PRN IVP HYPERTENSION, see comments Last administered on 10/01/21at 00:43; Start 09/28/21 at 14:30 Metoprolol Tartrate (Lopressor Vial) 5 mg PRN Q5MIN PRN IVP TACHYCARDIA Last administered on 09/30/21at 04:04; Start 09/28/21 at 14:30 Sodium Chloride 1,000 ml @ 75 mls/hr [id number] IV Last administered on 09/29/21at 05:24; Start 09/28/21 at 18:30; Stop 09/29/21 at 12:00; Status DC Perflutren Protein Type A Microsphe (Optison) 0.66 mg 1X ONCE IV ; Start 09/29/21 at 08:15; Stop 09/29/21 at 08:16; Status DC Piperacillin Sod/ Tazobactam Sod (Zosyn Per Pharmacy) 1 each PRN DAILY PRN MC SEE COMMENTS; Start 09/29/21 at 11:00 Piperacillin Sod/ Tazobactam Sod 3.375 gm/Sodium Chloride 50 ml @ 100 mls/hr Q 6HRS IV Last administered on 10/01/21at 05:34; Start 09/29/21 at 11:30 Amino Acids/ Electrolytes/ Dextrose 1,000 ml @ 75 mls/hr [id number] IV Last administered on 10/01/21at 09:06; Start 09/29/21 at 12:00 Metoprolol Tartrate (Lopressor Vial) 2.5 mg Q6HRS IVP Last administered on 10/01/21at 05:36; Start 09/30/21 at 14:30 Potassium Chloride/Water 100 ml @ 100 mls/hr Q1H IV Last administered on 09/30/21at 17:00; Start 09/30/21 at 16:00; Stop 09/30/21 at 17:59; Status DC Ringer's Solution 1,000 ml @ 10 mls/hr Q24H IV ; Start 09/30/21 at 21:00 Info (Tpn Per Pharmacy) 1 each PRN DAILY PRN MC SEE COMMENTS; Start 10/01/21 at 10:30; Status UNV Vitals/I & O Vital Sign - Last 24 Hours 09/30/21 09/30/21 09/30/21 09/30/21 12:00 12:00 16:00 16:37 Temp 98.6 98.1 98.6 98.1 Pulse 118 104 Resp B/P (MAP) 160/99 (119) 149/104 (119) Pulse Ox 91 94 O2 Delivery Nasal Cannula Nasal Cannula Nasal Cannula Nasal Cannula O2 Flow Rate 3.0 3.0 3.0 3.0 09/30/21 09/30/21 09/30/21 09/30/21 18:04 18:05 20:00 20:00 Temp 98.2 98.2 Pulse 120 96 104 Resp 24 B/P (MAP) 169/78 174/95 160/78 (105) Pulse Ox 92 O2 Delivery Nasal Cannula Nasal Cannula O2 Flow Rate 3.0 3.0 09/30/21 10/01/21 10/01/21 10/01/21 23:33 00:00 00:43 04:00 Temp 98.4 98.0 98.4 98.0 Pulse 133 112 112 109 Resp B/P (MAP) 160/78 158/82 (107) 182/94 141/85 (103) Pulse Ox 92 92 O2 Delivery Nasal Cannula Nasal Cannula O2 Flow Rate 3.0 3.0 10/01/21 10/01/21 10/01/21 10/01/21 05:36 07:00 08:00 08:00 Pulse 114 114 B/P (MAP) 141/85 159/90 (113) 159/90 O2 Delivery Nasal Cannula O2 Flow Rate 3.0 10/01/21 08:00 Temp 102.4 102.4 Pulse 109 Resp 20 B/P (MAP) 131/82 (98) Pulse Ox 92 O2 Delivery Nasal Cannula O2 Flow Rate 3.0 Intake and Output 09/30/21 09/30/21 10/01/21 15:00 23:00 07:00 Intake Total 1653 ml Balance 1653 ml Justicifation of Admission Dx: Justifications for Admission: Justification of Admission Dx: Yes Acute Hemorrhagic Stroke: Acute Hemorrhagic Stroke NICKIE CAMILO MD Oct 01, 2021 10:26
--- NOTE | 2021-10-01 10:43 | NUR ---
SS following up with discharge planning. SS reviewed pt chart and discussed with pt RN. Pt is currently requiring oxygen at three liters nasal canula. Pt on IV Zosyn and IV Clinimix. NPO. PICC being placed for TPN. GI consulted for PEG and PEG not recommended at this time. SS met with daughter and discussed discharge planning. Pt's daughter agreeable to referral to LTACH at this time and requested referrals to [facility], ; fax [phone], and [facility], ; fax [phone]. Referrals phoned and faxed as requested. SS will continue to follow for discharge planning.
--- NOTE | 2021-10-01 10:48 | NUR ---
Allergies and reactions [id number] INR 1.1 BUN 22 Cr 0.8 Platelets 185 Blood culture done no blood culture results Order Verified y Consent signed y Previous PICC placement unknown Past Medical/Surgical history and current diagnosis reviewed y Patient Medical /Surgical History Related to PICC line placement Problems breathing lying flat Special considerations for PICC line placement Infections PICC placement indication Caustic medication class drug usage, joint terminal attack controller antibiotic usage, Multiple/ Frequent blood draws, Poor peripheral intravenous access Total Parenteral Nutrition (TPN) Basilia VACA PICC Nurse Addendum: 10/01/21 at 1052 by MITCHELL HENDERSON RN Amended: Links added.
--- NOTE | 2021-10-01 10:51 | NUR ---
Procedure: Following complete explanation of the PICC procedure including the indications, risks, and potential complications, informed consent was obtained. The possibility for infection was discussed along with signs, symptoms, and prevention. All the questions were answered.y Written and verbal patient education was provided. y Hand hygiene performed. y Standardized central line checklist was utilized. y The patient was placed in the supine position, the arm was prepped with chlorhexidine and patient draped with maximum sterile barrier. 1.5 mL 1% lidocaine was infiltrated into the skin to provide local anesthesia. A thorough assessment of right upper extremity completed. Using real-time ultrasound guidance and standardized micro puncture set, the Brachial vein was punctured and a peel away sheath was placed using the modified Seldinger technique. A tip location device was used to ensure adequate catheter placement. The catheter was secured using a securement device and an antimicrobial patch was applied directly on the insertion site followed by a transparent dressing. All ports withdraw blood and flush without resistance. Patient tolerated the procedure without apparent complication(s). double Lumen Power PICC placement successful and uncomplicated. Placement verified by EKG tip confirmation system and/or chest x-ray. Tip located in the CAJ Complications:none Addendum: 10/01/21 at 1052 by MITCHELL HENDERSON RN Amended: Links added.
--- NOTE | 2021-10-01 10:51 | PDOC ---
ELMER FOSTER PIPE SMOKER MACHINE OPERATOR 10/01/21 1051: CARDIO Progress Notes Date and Time Date of Service 10/01/2021 Time of Evaluation 0950 Subjective Subjective: Other (nonverbal) Vitals Vitals Vital Signs Date Time Temp Pulse Resp B/P (MAP) Pulse Ox O2 Delivery O2 Flow Rate FiO2 10/01/21 08:00 102.4 109 20 131/82 (98) 92 Nasal Cannula 3.0 102.4 Weight Weight [ ] Input and Output Intake and Output Intake and Output 10/01/21 07:00 Intake Total 1653 ml Balance 1653 ml Intake Oral 0 ml IV Total 1653 ml # Voids 10 Laboratory Labs Laboratory Tests Test 09/30/21 12:40 10/01/21 04:15 Prothrombin Time 14.2 SEC (11.7-14.0) Prothromb Time International Ratio 1.1 (0.8-1.1) Sodium Level 150 mmol/L (136-145) 150 mmol/L (136-145) Potassium Level 3.2 mmol/L (3.5-5.1) 3.6 mmol/L (3.5-5.1) Chloride Level 115 mmol/L (98-107) 115 mmol/L (98-107) Carbon Dioxide Level 25 mmol/L (21-32) 28 mmol/L (21-32) Anion Gap 10 (6-14) 7 (6-14) Blood Urea Nitrogen 21 mg/dL (8-26) 22 mg/dL (8-26) Creatinine 0.7 mg/dL (0.7-1.3) 0.8 mg/dL (0.7-1.3) Estimated GFR (Cockcroft-Gault) 107.7 92.3 Glucose Level 183 mg/dL (70-99) 169 mg/dL (70-99) Calcium Level 9.0 mg/dL (8.5-10.1) 8.9 mg/dL (8.5-10.1) Magnesium Level 2.3 mg/dL (1.8-2.4) Triglycerides Level 62 mg/dL (0-150) Cholesterol Level 162 mg/dL (0-200) LDL Cholesterol, Calculated 87 mg/dL (0-100) VLDL Cholesterol, Calculated 12 mg/dL (0-40) Non-HDL Cholesterol Calculated 99 mg/dL (0-129) HDL Cholesterol 63 mg/dL (40-60) Cholesterol/HDL Ratio 2.6 Thyroid Stimulating Hormone (TSH) 1.005 uIU/mL (0.358-3.74) Physical Exam HEENT: Neck Supple W Full Motion Chest: Symmetric LUNGS: Other (diminished) Heart: RRR (st) Abdomen: Other (soft) Extremities: No Edema Neurology: non-verbal, other (very drowsy) Assessment Assessment 1. 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 2. CVA 3. HTN: labile episodes. SBP in the 140s EF and LV WM nml 4. Reactive sinus tachycardia with PVCs: physiologic with above neurological issue 5. Dysphagia: possible PEG per GI 6. Hypoxia: better with O2. pulmonary following 7. Moderate pulmonary HTN 8. Encephalopathy: very drowsy 9. Fever: Tmax 102.5 10. Mild hypernatremia: per PCP Recommendations 1. IV lopressor 2. Labetolol PRN for consistently high BP 3. Supportive care Justicifation of Admission Dx: Justifications for Admission: Justification of Admission Dx: Yes Acute Hemorrhagic Stroke: Acute Hemorrhagic Stroke MARCI DRAKE MD 10/01/212051: CARDIO Progress Notes Assessment Assessment Patient seen and examined. Agree with UNDERWRITER M[employer]GAGE LOAN's assessment and plan. Sinus tachycardia, most probably reactive/physiologic 2D echo showed normal LV systolic function without any significant structural abnormalities Acute CVA complicated by large intraparenchymal hemorrhage of left parietal lobe post TPA -neurology following GI team planning PEG tube placement for dysphagia ELMER FOSTER APRN Oct 01, 2021 10:51 MARCI DRAKE MD Oct 01, 2021 20:52
--- NOTE | 2021-10-01 13:00 | PDOC ---
[facility] PROGRESS NOTE Date of Service DOS: DATE: 10/01/21 TIME: 12:58 Chief Complaint Chief Complaint Large left intraparenchymal hemorrhage after TPAe 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 Has not seen a doctor in decades Tobacco abuse x60 years Hypoxia Leukocytosis Tachycardia Right neglect Possible aspiration pneumonia History of Present Illness History of Present Illness 10/01/2021 Patient seen and examined in the ICU He has coarse breath sounds today still having problems handling his secretions GI holding off on PEG tube at this time due to signs of intracranial hypertension in the size of his bleed Discussed with case management Discussed with RN Chart reviewed He remains critically ill 09/30/2021 Patient seen and examined in the ICU He is resting comfortably apparently was exhausted after speech therapy eval I called GI as he apparently needs a PEG tube I called social services aide to speak with his daughter regarding possible [facility] Spoke with case management Chart reviewed 09/29/2021 Patient seen and examined in the ICU He remains critically ill Has a glove on the left hand Right hand and arm not able to move He does not move his right leg either He appears to neglect his right side 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 Afebrile. S/P tPA with hemorrhagic conversion. Neurosurgery consulted. Continue nicardipine drip with goal blood [id number]/90 mmHg. Appears to be in rate controlled A. fib. He is somewhat somnolent. Critical care time 30 minutes spent reviewing charts, reviewing labs, reviewing imaging, discussion with RN. 09/27: Patient seen in ICU. Afebrile, tachycardic. S/P TPA with hemorrhagic conversion. Continue to manage blood pressure with IV nicardipine, but essentially no change. Plan is for echocardiogram and MRI when clinical course improves. Critical care time 30 minutes spent reviewing charts, reviewing labs, reviewing imaging, discussion with RN. 09/28: Patient seen in ICU. Afebrile, remains somewhat tachycardic. He is clinically unchanged. We will continue to monitor in ICU. PT/OT/ST following. If patient fails a swallow study test, which is highly likely, will need to provide nutrition with NG tube. Spent a considerable amount of time with daughter discussing plan of care. He is COVID-19 negative by PCR at [facility], so immunocompromised family members may come and visit him. Critical care time 30 minutes spent reviewing charts, reviewing labs, reviewing imaging, discussion with daughter, discussion with RN. 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 has right neglect General: No acute distress, Other (very drowsy) Heart: Regular rate (ST), Normal S1, Normal S2, No murmurs Lungs: Clear Abdomen: Soft Extremities: No cyanosis, No edema Skin: No breakdown, No significant lesion Labs Labs: Laboratory Tests Test 10/01/21 04:15 Sodium Level 150 mmol/L (136-145) Potassium Level 3.6 mmol/L (3.5-5.1) Chloride Level 115 mmol/L (98-107) Carbon Dioxide Level 28 mmol/L (21-32) Anion Gap 7 (6-14) Blood Urea Nitrogen 22 mg/dL (8-26) Creatinine 0.8 mg/dL (0.7-1.3) Estimated GFR (Cockcroft-Gault) 92.3 Glucose Level 169 mg/dL (70-99) Calcium Level 8.9 mg/dL (8.5-10.1) Phosphorus Level 2.4 mg/dL (2.6-4.7) Assessment and Plan Assessmemt and Plan Large left intraparenchymal hemorrhage after TPAe 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 Has not seen a doctor in decades Tobacco abuse x60 years Hypoxia Leukocytosis Tachycardia Right neglect Possible aspiration pneumonia Plan ICU monitoring Appreciate pulmonary cardiology and GI input Ordered empiric Zosyn We are getting a PICC line for TPN He is likely going to need a PEG tube but GI holding off at this point as he may not be stable Continue PPN for now Trend labs DVT prophylaxis Full code Suspect he will need to go to [facility] rehab or some other high-level rehabilitation unit once he is more stable Long-term prognosis extremely guarded CC time 31 Comment Review of Relevant I have reviewed the following items chapito (where applicable) has been applied. Medications: Current Medications Medications (Trade) Dose Ordered Sig/Isaac Route PRN Reason Start Time Stop Time Status Last Admin Dose Admin Metoprolol Tartrate (Lopressor Vial) 2.5 mg Q6HRS IVP 09/30/21 14:30 10/01/21 10:51 DC 10/01/21 05:36 Potassium Chloride/Water 100 ml @ 100 mls/hr Q1H IV 09/30/21 16:00 09/30/21 17:59 DC 09/30/21 17:00 Metoprolol Tartrate (Lopressor Vial) 5 mg Q6HRS IVP 10/01/21 12:00 10/01/21 12:33 Justifications for Admission Other Justification HUSSEIN RICHEY III DO Oct 01, 2021 13:00
[2021-10-01] MEDS: TPN PER PHARMACY MC PRN (14:21)
--- NOTE | 2021-10-01 16:47 | NUR ---
Pharmacy TPN Dosing Note S: HORTENCIA PALMER V is a 81 year old M Currently receiving Central Continuous TPN started 10/01/21 B:Pertinent PMH: Nutrition Support post left intraparenchymal hemorrhage after TPA Height: 5 feet, 6 inches Weight: 62.9 kg Current diet: npo LABS: Sodium: 150 Potassium: 3.6 Chloride: 115 Calcium: 8.9 Corrected Calcium: 9.38 Magnesium: 2.3 CO2: 28 SCr: 0.8 Glucose: 169 Albumin: 3.4 AST: 21 ALT: 18 TPN FORMULA: TPN TYPE: Central Continuous AMINO ACIDS: 75 gm DEXTROSE: 225 gm LIPIDS: 30 gm SODIUM CHLORIDE: 45 mEq POTASSIUM CHLORIDE: 50 mEq POTASSIUM PHOSPHATE: 20 mmol MAGNESIUM: 10 mEq MULTIPLE VITAMIN: 10 ml TRACE ELEMENTS: 1 ml(s) TPN PLAN: At the start of the TPN, dc the clinimix. Decreased the NaCl to 45 mEq/bag and increased the KPhos to 20 mmol/bag. R: Begin TPN @ 63 ML/HR Will monitor electrolytes, glucose, and tolerance to TPN. NAZ [facility], 10/01/21 0809
[2021-10-01] MEDS: IV RINGERS,LACTATED 1000ML 1,000 ML IV SCH (21:00)
[2021-10-01] MEDS ORDERED: AMINO ACID IV SCH (22:00)
[2021-10-01] MEDS ORDERED: TOTAL PARENTERAL NUTRITION IV SCH (22:00)
[2021-10-01] MEDS ORDERED: DEXTROSE 70% IV SCH (22:00)
[2021-10-01] MEDS ORDERED: [UNRECOGNIZED DRUG - OTHER] IV SCH (22:00)
[2021-10-02] VITALS (7 sets, daily range): BP systolic 135–174; BP diastolic 74–97
[2021-10-02] MEDS: PIPERACILLIN/TAZOBACTAM 3.375 GM in IV NORMAL SALINE 50ML 50 ML IV SCH ×5 (00:12→23:57)
[2021-10-02] MEDS: METOPROLOL IV PUSH 5 MG/5 ML VIAL. IVP SCH ×5 (00:13→23:58)
[2021-10-02] MEDS: LABETALOL 20 MG/4 ML DISP.SYRIN. IVP PRN (05:35)
[2021-10-02] MEDS: ELECTROLYTE (ICU) PROTOCOL. MC SCH (09:00)
[2021-10-02] MEDS: SENNOSIDES/DOCUSATE 8.6/50MG TABLET. PO SCH ×2 (09:00→19:54)
--- NOTE | 2021-10-02 09:40 | PDOC ---
PULMONARY PROGRESS NOTES DATE: 10/02/21 TIME: 09:40 Subjective Patient nonverbal nonresponsive to verbal stimuli no signs of respiratory distress Vitals Vital Signs Date Time Temp Pulse Resp B/P (MAP) Pulse Ox O2 Delivery O2 Flow Rate FiO2 10/02/21 05:36 119 149/88 10/02/21 04:00 98.8 18 99 Nasal Cannula 3.0 98.8 ROS: No Nausea, No Chest Pain, No Abdominal Pain, No Increase Cough General: Alert Lungs: Clear Cardiovascular: S1, S2 Abdomen: Soft, Non-tender Neuro Exam: Alert Extremities: No Edema Skin: Warm Labs Laboratory Tests Test 09/30/21 12:40 09/30/21 16:00 10/01/21 04:15 Prothrombin Time 14.2 SEC (11.7-14.0) Prothromb Time International Ratio 1.1 (0.8-1.1) Sodium Level 150 mmol/L (136-145) 150 mmol/L (136-145) Potassium Level 3.2 mmol/L (3.5-5.1) 3.6 mmol/L (3.5-5.1) Chloride Level 115 mmol/L (98-107) 115 mmol/L (98-107) Carbon Dioxide Level 25 mmol/L (21-32) 28 mmol/L (21-32) Anion Gap 10 (6-14) 7 (6-14) Blood Urea Nitrogen 21 mg/dL (8-26) 22 mg/dL (8-26) Creatinine 0.7 mg/dL (0.7-1.3) 0.8 mg/dL (0.7-1.3) Estimated GFR (Cockcroft-Gault) 107.7 92.3 Glucose Level 183 mg/dL (70-99) 169 mg/dL (70-99) Calcium Level 9.0 mg/dL (8.5-10.1) 8.9 mg/dL (8.5-10.1) Magnesium Level 2.3 mg/dL (1.8-2.4) Triglycerides Level 62 mg/dL (0-150) Cholesterol Level 162 mg/dL (0-200) LDL Cholesterol, Calculated 87 mg/dL (0-100) VLDL Cholesterol, Calculated 12 mg/dL (0-40) Non-HDL Cholesterol Calculated 99 mg/dL (0-129) HDL Cholesterol 63 mg/dL (40-60) Cholesterol/HDL Ratio 2.6 Thyroid Stimulating Hormone (TSH) 1.005 uIU/mL (0.358-3.74) Coronavirus (COVID-19)(PCR) Not detected (NOT DETECTD) Phosphorus Level 2.4 mg/dL (2.6-4.7) Impression . IMPRESSION: 1. Hypoxemia, suspect secondary to hypoventilation and mild atelectasis. 2. Large intraparenchymal hemorrhage of the left parietal lobe following TPA for ischemic stroke. 4. Possible seizure. 5. Hypertension. Plan . Updated 10/02 Upper airway noise, patient appears to be controlling his secretions relatively well Continue empiric antibiotics Family wishes to be aggressive Referral to LTAC Repeat CT head today We will discussed with neurology of the possibility of transferring him to LTAC tomorrow 10/01 Had fever, started on empiric antibiotics Continue close monitoring PEG could not be done secondary to increased intracranial pressures Continue oxygen supplementation Aggressive pulmonary hygiene Follow neurology input, MRI no change GRZEGORZ LOERA MD Oct 02, 2021 09:40
--- NOTE | 2021-10-02 09:50 | PDOC ---
ELMER FOSTER SCHOOL BUS MECHANIC 10/02/21 0950: CARDIO Progress Notes Date and Time Date of Service 10/02/2021 Time of Evaluation 0920 Subjective Subjective: Other (mumbles) Vitals Vitals Vital Signs Date Time Temp Pulse Resp B/P (MAP) Pulse Ox O2 Delivery O2 Flow Rate FiO2 10/02/21 05:36 119 149/88 10/02/21 04:00 98.8 18 99 Nasal Cannula 3.0 98.8 Weight Weight [ ] Input and Output Intake and Output Intake and Output 10/02/21 07:00 Intake Total 246 ml Output Total 3 ml Balance 243 ml Intake Oral 0 ml IV Total 246 ml Stool Total 3 ml # Voids 5 Physical Exam HEENT: Neck Supple W Full Motion Chest: Symmetric LUNGS: Other (diminished) Heart: RRR (st) Abdomen: Other (soft) Extremities: No Edema Neurology: other (drowsy, mumbles) Assessment Assessment 1. 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 2. CVA 3. HTN: labile episodes. SBP in the 140s EF and LV WM nml 4. Reactive sinus tachycardia with PVCs: physiologic with above neurological issue 5. Dysphagia: possible PEG per GI 6. Hypoxia: better with O2. pulmonary following 7. Moderate pulmonary HTN 8. Encephalopathy: very drowsy 9. Fever: Tmax 102.5 10. Mild hypernatremia: per PCP Recommendations 1. IV lopressor 2. Labetolol PRN for consistently high BP 3. Supportive care Justicifation of Admission Dx: Justifications for Admission: Justification of Admission Dx: Yes Acute Hemorrhagic Stroke: Acute Hemorrhagic Stroke MARCI DRAKE MD 10/02/218: CARDIO Progress Notes Assessment Assessment Patient seen and examined. Agree with FLOOR SCRAPER's assessment and plan. Sinus tachycardia, most probably reactive/physiologic 2D echo showed normal LV systolic function without any significant structural abnormalities Acute CVA complicated by large intraparenchymal hemorrhage of left parietal lobe post TPA -neurology following ELMER FOSTER SCHOOL BUS MECHANIC Oct 02, 2021 09:50 MARCI DRAKE MD Oct 02, 2021 21:58
[2021-10-02 10:12] LABS: CALCIUM 8.8 mg/dL (8.5-10.1); CREATININE 0.7 mg/dL (0.7-1.3); GFR 107.7; MAGNESIUM 2.4 mg/dL (1.8-2.4); PHOSPHORUS 1.6 mg/dL (2.6-4.7); POTASSIUM 3.6 mmol/L (3.5-5.1)
--- NOTE | 2021-10-02 10:12 | PDOC ---
Date of Service: DATE: 10/02/21 TIME: 10:10 Objective: Objective: D/w nurse - no GI concerns, on TPN, daughter to discuss possible comfort care w/ rest of family. Vital Signs: Vital Signs Date Time Temp Pulse Resp B/P (MAP) Pulse Ox O2 Delivery O2 Flow Rate FiO2 10/02/21 05:36 119 149/88 10/02/21 04:00 98.8 18 99 Nasal Cannula 3.0 98.8 Imaging: CXR 10/01 Impression: 1. Increased small left pleural effusion. 2. Increased mild patchy bibasilar opacities, may represent atelectasis or developing infiltrates. PE: GEN: chronically ill LUNGS: decreased, NC 3L HEART: tachycardic ABD: BS+, winces a bit with palpation epigastrium/RUQ NEURO/PSYCH: eyes flutter open when I spoke to him A/P: Left parietal lobe hemorrhage, CVA, dysphagia COVID negative -- PEG on hold, await family's decisions. Justicifation of Admission Dx: Justifications for Admission: Justification of Admission Dx: Yes Acute Hemorrhagic Stroke: Acute Hemorrhagic Stroke SALUD ESPARZA Oct 02, 2021 10:12
[2021-10-02] MEDS: IV RINGERS,LACTATED 1000ML 1,000 ML IV SCH (11:39)
[2021-10-02] MEDS: ACETAMINOPHEN 650 MG SUPP.RECT. PR PRN (11:47)
--- NOTE | 2021-10-02 12:32 | PDOC ---
[employer] PROGRESS NOTE Date of Service DOS: DATE: 10/02/21 TIME: 12:30 Chief Complaint Chief Complaint Large left intraparenchymal hemorrhage after TPAe 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 Has not seen a doctor in decades Tobacco abuse x60 years Hypoxia Leukocytosis Tachycardia Right neglect Possible aspiration pneumonia History of Present Illness History of Present Illness 10/02/2021 Patient seen and examined in the ICU He is resting on his right side seems to be hyperventilating Will not let me touch him much seems to grimace with pain He is on TPN His breath sounds sound a little coarse I suspect he is having problems handling his secretions still He has been tentatively accepted to go to [facility] long-term acute care tomorrow Discussed with RN Discussed with case management Chart reviewed He remains very ill 10/01/2021 Patient seen and examined in the ICU He has coarse breath sounds today still having problems handling his secretions GI holding off on PEG tube at this time due to signs of intracranial hypertension in the size of his bleed Discussed with case management Discussed with RN Chart reviewed He remains critically ill 09/30/2021 Patient seen and examined in the ICU He is resting comfortably apparently was exhausted after speech therapy eval I called GI as he apparently needs a PEG tube I called delinquency prevention social worker to speak with his daughter regarding possible [facility] Spoke with case management Chart reviewed 09/29/2021 Patient seen and examined in the ICU He remains critically ill Has a glove on the left hand Right hand and arm not able to move He does not move his right leg either He appears to neglect his right side 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 Afebrile. S/P tPA with hemorrhagic conversion. Neurosurgery consulted. Continue nicardipine drip with goal blood [id number]/90 mmHg. Appears to be in rate controlled A. fib. He is somewhat somnolent. Critical care time 30 minutes spent reviewing charts, reviewing labs, reviewing imaging, discussion with RN. 09/27: Patient seen in ICU. Afebrile, tachycardic. S/P TPA with hemorrhagic conversion. Continue to manage blood pressure with IV nicardipine, but essentially no change. Plan is for echocardiogram and MRI when clinical course improves. Critical care time 30 minutes spent reviewing charts, reviewing labs, reviewing imaging, discussion with RN. 09/28: Patient seen in ICU. Afebrile, remains somewhat tachycardic. He is clinically unchanged. We will continue to monitor in ICU. PT/OT/ST following. If patient fails a swallow study test, which is highly likely, will need to provide nutrition with NG tube. Spent a considerable amount of time with daughter discussing plan of care. He is COVID-19 negative by PCR at [facility], so immunocompromised family members may come and visit him. Critical care time 30 minutes spent reviewing charts, reviewing labs, reviewing imaging, discussion with daughter, discussion with RN. 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 has right neglect General: mild distress, Other (very drowsy) Heart: Regular rate (ST), Normal S1, Normal S2, No murmurs Lungs: Clear Abdomen: Soft Extremities: No cyanosis, No edema Skin: No breakdown, No significant lesion Labs Labs: Laboratory Tests Test 10/02/21 09:40 Sodium Level 155 mmol/L (136-145) Potassium Level 3.6 mmol/L (3.5-5.1) Chloride Level 119 mmol/L (98-107) Carbon Dioxide Level 28 mmol/L (21-32) Anion Gap 8 (6-14) Blood Urea Nitrogen 23 mg/dL (8-26) Creatinine 0.7 mg/dL (0.7-1.3) Estimated GFR (Cockcroft-Gault) 107.7 Glucose Level 235 mg/dL (70-99) Calcium Level 8.8 mg/dL (8.5-10.1) Phosphorus Level 1.6 mg/dL (2.6-4.7) Magnesium Level 2.4 mg/dL (1.8-2.4) Triglycerides Level 72 mg/dL (0-150) Assessment and Plan Assessmemt and Plan Large left intraparenchymal hemorrhage after TPAe 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 Has not seen a doctor in decades Tobacco abuse x60 years Hypoxia Leukocytosis Tachycardia Right neglect Possible aspiration pneumonia Plan ICU monitoring He is tentatively scheduled to go to [facility] long-term acute care tomorrow For now continue the following; Appreciate pulmonary cardiology and GI input Ordered empiric Zosyn We are getting a PICC line for TPN He is likely going to need a PEG tube but GI holding off at this point as he may not be stable Continue PPN for now Trend labs DVT prophylaxis Full code Suspect he will need to go to [facility] rehab or some other high-level rehabilitation unit once he is more stable Long-term prognosis extremely guarded CC time 33 minutes Comment Review of Relevant I have reviewed the following items chapito (where applicable) has been applied. Medications: Current Medications Medications (Trade) Dose Ordered Sig/Isaac Route PRN Reason Start Time Stop Time Status Last Admin Dose Admin Sodium Chloride 45 meq/Potassium Chloride 50 meq/ Potassium Phosphate 20 mmol/ Magnesium Sulfate 10 meq/ Multivitamins 10 ml/Zinc/Copper/ Manganese/ Selenium 1 ml/ Total Parenteral Nutrition/Amino Acids/Dextrose/ Fat Emulsion Intravenous 1,512 ml @ 63 mls/hr TPN CONT IV 10/01/21 22:00 10/02/21 21:59 10/01/21 21:07 Justifications for Admission Other Justification HUSSEIN RICHEY III DO Oct 02, 2021 12:32
--- NOTE | 2021-10-02 12:53 | PDOC ---
PROGRESS NOTES Date of Service DATE: 10/02/21 TIME: 12:52 Assessment Large intraparenchymal hemorrhage of the left parietal lobe following alteplase given for clinically a small ischemic stroke, clinically unchanged, no change on MRI Carotid Dopplers were done, he already had CT angiogram at [facility] He had some possible seizure activity but no recurrence Has not seen a physician in 45 years Plan Repeat head CT today Rehabilitation modalities Hold anticoagulation Blood pressure goal less than 150/90 Will need PEG, GI has seen and wants to hold off given the size of the hemorrhage Objective Vital Signs Date Time Temp Pulse Resp B/P (MAP) Pulse Ox O2 Delivery O2 Flow Rate FiO2 10/02/21 12:13 125 146/97 10/02/21 12:00 101.4 36 100 Nasal Cannula 3.0 101.4 Intake and Output 10/02/21 07:00 Intake Total 246 ml Output Total 3 ml Balance 243 ml Intake Oral 0 ml IV Total 246 ml Stool Total 3 ml # Voids 5 PHYSICAL EXAM Eyes closed, stirs to soft voice, does not follow commands, PERRL. EOMI. CN: Right field cut to threat, right central facial weakness Muscle tone: normal. Muscle strength: Right hemiparesis DTR: 2+ Plantar reflex: Flexor Gait: not examined Sensory exam: Not cooperative. Cerebellar:Not cooperative Review of Relevant I have reviewed the following items chapito (where applicable) has been applied. Labs Laboratory Tests Test 09/30/21 16:00 10/01/21 04:15 10/02/21 09:40 Coronavirus (COVID-19)(PCR) Not detected (NOT DETECTD) Sodium Level 150 mmol/L (136-145) 155 mmol/L (136-145) Potassium Level 3.6 mmol/L (3.5-5.1) 3.6 mmol/L (3.5-5.1) Chloride Level 115 mmol/L (98-107) 119 mmol/L (98-107) Carbon Dioxide Level 28 mmol/L (21-32) 28 mmol/L (21-32) Anion Gap 7 (6-14) 8 (6-14) Blood Urea Nitrogen 22 mg/dL (8-26) 23 mg/dL (8-26) Creatinine 0.8 mg/dL (0.7-1.3) 0.7 mg/dL (0.7-1.3) Estimated GFR (Cockcroft-Gault) 92.3 107.7 Glucose Level 169 mg/dL (70-99) 235 mg/dL (70-99) Calcium Level 8.9 mg/dL (8.5-10.1) 8.8 mg/dL (8.5-10.1) Phosphorus Level 2.4 mg/dL (2.6-4.7) 1.6 mg/dL (2.6-4.7) Magnesium Level 2.4 mg/dL (1.8-2.4) Triglycerides Level 72 mg/dL (0-150) Laboratory Tests Test 10/02/21 09:40 Sodium Level 155 mmol/L (136-145) Potassium Level 3.6 mmol/L (3.5-5.1) Chloride Level 119 mmol/L (98-107) Carbon Dioxide Level 28 mmol/L (21-32) Anion Gap 8 (6-14) Blood Urea Nitrogen 23 mg/dL (8-26) Creatinine 0.7 mg/dL (0.7-1.3) Estimated GFR (Cockcroft-Gault) 107.7 Glucose Level 235 mg/dL (70-99) Calcium Level 8.8 mg/dL (8.5-10.1) Phosphorus Level 1.6 mg/dL (2.6-4.7) Magnesium Level 2.4 mg/dL (1.8-2.4) Triglycerides Level 72 mg/dL (0-150) Medications Current Medications Ondansetron HCl (Zofran) 4 mg PRN Q6HRS PRN IVP NAUSEA/VOMITING; Start 09/25/21 at 20:00 Info (Icu Electrolyte Protocol) 1 ea DAILY MC Last administered on 09/30/21at 09:00; Start 09/26/21 at 09:00 Sodium Chloride (Normal Saline Flush) 3 ml QSHIFT PRN IV AFTER MEDS AND BLOOD DRAWS; Start 09/25/21 at 20:00 Sodium Chloride 1,000 ml @ 1,000 mls/hr Q1H IV Last administered on 09/25/21at 21:59; Start 09/25/21 at 20:00; Stop 09/25/21 at 20:59; Status DC Senna/Docusate Sodium (Senna Plus) 1 tab BID PO ; Start 09/25/21 at 21:00 Levetiracetam 100 ml @ 400 mls/hr 1X ONCE IV Last administered on 09/25/21at 22:26; Start 09/25/21 at 22:00; Stop 09/25/21 at 22:14; Status DC Lorazepam (Ativan Inj) 2 mg PRN Q4HRS PRN IVP AGITATION SEIZURE Last administered on 09/30/21at 03:03; Start 09/25/21 at 20:00 Hydralazine HCl (Apresoline Inj) 10 mg PRN Q4HRS PRN IVP ELEVATED BP, SEE COMMENTS Last administered on 10/01/21at 08:00; Start 09/25/21 at 20:00 Nicardipine HCl 50 mg/Sodium Chloride 250 ml @ 25 mls/hr CONT PRN IV PER PROTOCOL Last administered on 09/25/21at 22:44; Start 09/25/21 at 21:45; Stop 09/26/21 at 08:48; Status DC Info (Review Meds) 1 ea PRN 1X PRN MC SEE COMMENTS; Start 09/26/21 at 08:30 Acetaminophen (Tylenol Supp) 650 mg PRN Q6HRS PRN [place] FEVER > 100.5'F or 38'C Last administered on 10/02/21at 11:47; Start 09/26/21 at 08:30 Nicardipine HCl 50 mg/Sodium Chloride 250 ml @ 25 mls/hr CONT PRN IV HYPERTENSION, see comments Last administered on 09/27/21at 20:04; Start 09/26/21 at 08:30 Labetalol HCl (Normodyne Iv Push) 10 mg PRN Q10MIN PRN IVP HYPERTENSION, see comments Last administered on 10/02/21at 05:35; Start 09/28/21 at 14:30 Metoprolol Tartrate (Lopressor Vial) 5 mg PRN Q5MIN PRN IVP TACHYCARDIA Last administered on 09/30/21at 04:04; Start 09/28/21 at 14:30 Sodium Chloride 1,000 ml @ 75 mls/hr [id number] IV Last administered on 09/29/21at 05:24; Start 09/28/21 at 18:30; Stop 09/29/21 at 12:00; Status DC Perflutren Protein Type A Microsphe (Optison) 0.66 mg 1X ONCE IV ; Start 09/29/21 at 08:15; Stop 09/29/21 at 08:16; Status DC Piperacillin Sod/ Tazobactam Sod (Zosyn Per Pharmacy) 1 each PRN DAILY PRN MC SEE COMMENTS; Start 09/29/21 at 11:00 Piperacillin Sod/ Tazobactam Sod 3.375 gm/Sodium Chloride 50 ml @ 100 mls/hr Q6HRS IV Last administered on 10/02/21at 12:13; Start 09/29/21 at 11:30 Amino Acids/ Electrolytes/ Dextrose 1,000 ml @ 75 mls/hr [id number] IV Last administered on 10/01/21at 09:06; Start 09/29/21 at 12:00; Stop 10/01/21 at 21:59; Status DC Metoprolol Tartrate (Lopressor Vial) 2.5 mg Q6HRS IVP Last administered on 10/01/21at 05:36; Start 09/30/21 at 14:30; Stop 10/01/21 at 10:51; Status DC Potassium Chloride/Water 100 ml @ 100 mls/hr Q1H IV Last administered on 09/30/21at 17:00; Start 09/30/21 at 16:00; Stop 09/30/21 at 17:59; Status DC Ringer's Solution 1,000 ml @ 10 mls/hr Q24H IV Last administered on 10/02/21at 11:39; Start 09/30/21 at 21:00 Info (Tpn Per Pharmacy) 1 each PRN DAILY PRN MC SEE COMMENTS Last administered on 10/01/21at 14:21; Start 10/01/21 at 10:30 Metoprolol Tartrate (Lopressor Vial) 5 mg Q6HRS IVP Last administered on 10/02/21at 12:13; Start 10/01/21 at 12:00 Sodium Chloride 45 meq/Potassium Chloride 50 meq/ Potassium Phosphate 20 mmol/ Magnesium Sulfate 10 meq/ Multivitamins 10 ml/Zinc/Copper/ Manganese/ Selenium 1 ml/ Total Parenteral Nutrition/Amino Acids/Dextrose/ Fat Emulsion Intravenous 1,512 ml @ 63 mls/hr TPN CONT IV Last administered on 10/01/21at 21:07; Start 10/01/21 at 22:00; Stop 10/02/21 at 21:59 Potassium Phosphate 15 mmol/ Sodium Chloride 105 ml @ 52.5 mls/hr 1X ONCE IV ; Start 10/02/21 at 14:00; Stop 10/02/21 at 15:59 Vitals/I & O Vital Sign - Last 24 Hours 10/01/21 10/01/21 10/01/21 10/01/21 16:00 17:24 20:00 20:00 Temp 98.7 98.2 98.7 98.2 Pulse 114 119 119 Resp 20 20 B/P (MAP) 141/90 (107) 143/91 149/88 (108) Pulse Ox 92 99 O2 Delivery Nasal Cannula Nasal Cannula Nasal Cannula O2 Flow Rate 3.0 3.0 3.0 10/02/21 10/02/21 10/02/21 10/02/21 00:00 00:13 04:00 05:35 Temp 98.2 98.8 98.2 98.8 Pulse 119 119 120 119 Resp 20 18 B/P (MAP) 135/84 (101) 149/88 155/88 (110) 149/88 Pulse Ox 99 99 O2 Delivery Nasal Cannula Nasal Cannula O2 Flow Rate 3.0 3.0 10/02/21 10/02/21 10/02/21 10/02/21 05:36 08:00 08:00 12:00 Temp 100.5 101.4 100.5 101.4 Pulse 119 110 96 Resp 38 36 B/P (MAP) 149/88 140/90 (107) 146/97 (113) Pulse Ox 97 100 O2 Delivery Nasal Cannula Nasal Cannula Nasal Cannula O2 Flow Rate 3.0 3.0 3.0 10/02/21 12:13 Pulse 125 B/P (MAP) 146/97 Intake and Output 10/01/21 10/01/21 10/02/21 15:00 23:00 07:00 Intake Total 0 ml 0 ml 246 ml Output Total 1 ml 2 ml Balance -1 ml -2 ml 246 ml Justicifation of Admission Dx: Justifications for Admission: Justification of Admission Dx: Yes Acute Hemorrhagic Stroke: Acute Hemorrhagic Stroke NICKIE CAMILO MD Oct 02, 2021 12:53
[2021-10-02] MEDS: TPN PER PHARMACY MC PRN (13:32)
--- NOTE | 2021-10-02 13:34 | NUR ---
Pharmacy TPN Dosing Note S: HORTENCIA PALMER V is a 81 year old M Currently receiving Central Continuous TPN started 10/01/21 B:Pertinent PMH: Nutrition Support post left intraparenchymal hemorrhage after TPA Height: 5 feet, 6 inches Weight: 62.9 kg Current diet: npo LABS: Sodium: 155 Potassium: 3.6 Chloride: 119 Calcium: 8.8 Corrected Calcium: 9.28 Magnesium: 2.4 CO2: 28 SCr: 0.7 Glucose: 235 Albumin: 3.4 AST: 21 ALT: 18 TPN FORMULA: TPN TYPE: Central Continuous AMINO ACIDS: 75 gm DEXTROSE: 225 gm LIPIDS: 30 gm SODIUM CHLORIDE: 0 mEq SODIUM ACETATE: 0 mEq SODIUM PHOSPHATE: 0 mmol POTASSIUM CHLORIDE: 10 mEq POTASSIUM ACETATE: 30 mEq POTASSIUM PHOSPHATE: 30 mmol MAGNESIUM: 10 mEq CALCIUM: 0 mEq INSULIN: 0 units MULTIPLE VITAMIN: 10 ml TRACE ELEMENTS: 1 ml(s) TPN PLAN: Remove NaCl, increase KPhos after Kphos rider today. Change most Kcl to KAcetate. R: Continue TPN as ordered Will monitor electrolytes, glucose, and tolerance to TPN. SKYLER COULTER, [facility], 10/02/21 [id number]
[2021-10-02] MEDS ORDERED: POTASSIUM PHOSPHATE DIBASIC 15 MMOL in IV NS 100 ML IV ONE (14:00)
--- NOTE | 2021-10-02 14:44 | RAD ---
CT HEAD WITHOUT CONTRAST 10/02/2021 1:29 PM Indication: Follow-up intracranial hemorrhage Comparison: CT head, September 26, 2021 Procedure: Multidetector CT imaging of the head was performed without the administration of contrast. Findings: Redemonstration of the large predominantly parietal intraparenchymal hemorrhage with surrou nding edema. Focal mass effect is similar similar. There is approximately 1 cm of [id number] midli ne shift, which is similar. A component of intraventricular hemorrhage is present which is evidenced by blood layering in the dependent portion of the bilateral, lateral ventricles. Prominence of the la teral ventricles similar to comparison study. A definitive obstruction is identified on today's exam. No acute osseous changes are noted in the interim. IMPRESSION: 1. Grossly similar large intraparenchymal hemorrhage parietal lobe with surrounding edema 2. Small amount of intraventricular hemorrhage now noted in the dependent portions of the lateral saji tricles without overt obstruction. CT DOSING PQRS STATEMENT: One or more of the following individualized dose reduction techniques were utilized for this examinat ion: 1. Automated exposure control 2. Adjustment of the mA and/or kV according to patient size 3. Use of iterative reconstruction technique Electronically signed by: Last Wright MD (10/02/2021 2:42 PM) [id number]
[2021-10-02] MEDS: hydrALAZINE 20 MG/ML VIAL. IVP PRN (16:28)
--- NOTE | 2021-10-02 16:34 | NUR ---
SS following up with discharge planning. SS reviewed pt chart and discussed with pt RN. Pt is currently requiring oxygen at three liters nasal canula. COVID19 negative. Pt on TPN, IV Zosyn, and IV Metoprolol. Pt accepted at [facility] and [facility]. Beds available at both facilities tomorrow. Pt's daughter aware of acceptance decisions. SS will continue to follow for discharge planning.
[2021-10-02] MEDS ORDERED: DEXTROSE 70% IV SCH (22:00)
[2021-10-02] MEDS ORDERED: AMINO ACID IV SCH (22:00)
[2021-10-02] MEDS ORDERED: TOTAL PARENTERAL NUTRITION IV SCH (22:00)
[2021-10-02] MEDS ORDERED: [UNRECOGNIZED DRUG - OTHER] IV SCH (22:00)
[2021-10-03] VITALS: BP 140/74
[2021-10-03 04:00] VITALS: BP 153/65
[2021-10-03] MEDS: PIPERACILLIN/TAZOBACTAM 3.375 GM in IV NORMAL SALINE 50ML 50 ML IV SCH ×2 (05:35→14:06)
[2021-10-03] MEDS: METOPROLOL IV PUSH 5 MG/5 ML VIAL. IVP SCH ×2 (05:41→12:56)
[2021-10-03 06:07] LABS: CREATININE 0.8 mg/dL (0.7-1.3); GFR 92.3; MAGNESIUM 2.6 mg/dL (1.8-2.4); POTASSIUM 3.5 mmol/L (3.5-5.1)
[2021-10-03 08:00] VITALS: BP 140/90
--- NOTE | 2021-10-03 08:08 | PDOC ---
PULMONARY PROGRESS NOTES DATE: 10/03/21 TIME: 08:08 Subjective Patient nonverbal nonresponsive to verbal stimuli no signs of respiratory distress Vitals Vital Signs Date Time Temp Pulse Resp B/P (MAP) Pulse Ox O2 Delivery O2 Flow Rate FiO2 10/03/21 05:41 121 153/65 10/03/21 04:00 98.1 22 95 Room Air 98.1 10/03/21 00:00 3.0 ROS: No Nausea, No Chest Pain, No Abdominal Pain, No Increase Cough General: Alert Lungs: Clear Cardiovascular: S1, S2 Abdomen: Soft, Non-tender Neuro Exam: Alert Extremities: No Edema Skin: Warm Labs Laboratory Tests Test 10/02/21 09:40 10/03/21 05:40 Sodium Level 155 mmol/L (136-145) 155 mmol/L (136-145) Potassium Level 3.6 mmol/L (3.5-5.1) 3.5 mmol/L (3.5-5.1) Chloride Level 119 mmol/L (98-107) 121 mmol/L (98-107) Carbon Dioxide Level 28 mmol/L (21-32) 25 mmol/L (21-32) Anion Gap 8 (6-14) 9 (6-14) Blood Urea Nitrogen 23 mg/dL (8-26) 25 mg/dL (8-26) Creatinine 0.7 mg/dL (0.7-1.3) 0.8 mg/dL (0.7-1.3) Estimated GFR (Cockcroft-Gault) 107.7 92.3 Glucose Level 235 mg/dL (70-99) 219 mg/dL (70-99) Calcium Level 8.8 mg/dL (8.5-10.1) 9.0 mg/dL (8.5-10.1) Phosphorus Level 1.6 mg/dL (2.6-4.7) 2.0 mg/dL (2.6-4.7) Magnesium Level 2.4 mg/dL (1.8-2.4) 2.6 mg/dL (1.8-2.4) Triglycerides Level 72 mg/dL (0-150) Laboratory Tests Test 10/02/21 09:40 10/03/21 05:40 Sodium Level 155 mmol/L (136-145) 155 mmol/L (136-145) Potassium Level 3.6 mmol/L (3.5-5.1) 3.5 mmol/L (3.5-5.1) Chloride Level 119 mmol/L (98-107) 121 mmol/L (98-107) Carbon Dioxide Level 28 mmol/L (21-32) 25 mmol/L (21-32) Anion Gap 8 (6-14) 9 (6-14) Blood Urea Nitrogen 23 mg/dL (8-26) 25 mg/dL (8-26) Creatinine 0.7 mg/dL (0.7-1.3) 0.8 mg/dL (0.7-1.3) Estimated GFR (Cockcroft-Gault) 107.7 92.3 Glucose Level 235 mg/dL (70-99) 219 mg/dL (70-99) Calcium Level 8.8 mg/dL (8.5-10.1) 9.0 mg/dL (8.5-10.1) Phosphorus Level 1.6 mg/dL (2.6-4.7) 2.0 mg/dL (2.6-4.7) Magnesium Level 2.4 mg/dL (1.8-2.4) 2.6 mg/dL (1.8-2.4) Triglycerides Level 72 mg/dL (0-150) Impression . IMPRESSION: 1. Hypoxemia, suspect secondary to hypoventilation and mild atelectasis. 2. Large intraparenchymal hemorrhage of the left parietal lobe following TPA for ischemic stroke. 4. Possible seizure. 5. Hypertension. Plan . Updated 10/[address] Martin Discussed with marriage and family social worker Respiratory status stable to transfer GRZEGORZ LOERA MD Oct 03, 2021 08:08
[2021-10-03] MEDS: SENNOSIDES/DOCUSATE 8.6/50MG TABLET. PO SCH (09:00)
[2021-10-03] MEDS: ELECTROLYTE (ICU) PROTOCOL. MC SCH (09:00)
--- NOTE | 2021-10-03 09:11 | PDOC ---
PROGRESS NOTES Date of Service DATE: 10/03/21 TIME: 09:09 Assessment Large intraparenchymal hemorrhage of the left parietal lobe following alteplase given for clinically a small ischemic stroke, clinically unchanged, no change on MRI, no change on yesterday's head CT, no hydrocephalus Carotid Dopplers were done, he already had CT angiogram at [facility] He had some possible seizure activity but no recurrence Has not seen a physician in 45 years Plan Rehabilitation modalities Hold anticoagulation at least 2 weeks Blood pressure goal less than 150/90 Will need PEG, GI held off because of worries of increased intracranial pressure Therefore, okay for me to transfer to long-term acute care, they can always place a PEG there, in the meantime peripheral nutrition Follow-up head CT scans as needed Follow-up with me as needed Subjective None Objective Vital Signs Date Time Temp Pulse Resp B/P (MAP) Pulse Ox O2 Delivery O2 Flow Rate FiO2 10/03/21 05:41 121 153/65 10/03/21 04:00 98.1 22 95 Room Air 98.1 10/03/21 00:00 3.0 Intake and Output 10/03/21 07:00 Intake Total 969.46 ml Balance 969.46 ml IV Total 969.46 ml # Voids 6 PHYSICAL EXAM Eyes closed, stirs to soft voice, does not follow commands, PERRL. EOMI. CN: Right field cut to threat, right central facial weakness Muscle tone: normal. Muscle strength: Right hemiparesis DTR: 2+ Plantar reflex: Flexor Gait: not examined Sensory exam: Not cooperative. Cerebellar:Not cooperative Review of Relevant I have reviewed the following items chapito (where applicable) has been applied. Labs Laboratory Tests Test 10/02/21 09:40 10/03/21 05:40 Sodium Level 155 mmol/L (136-145) 155 mmol/L (136-145) Potassium Level 3.6 mmol/L (3.5-5.1) 3.5 mmol/L (3.5-5.1) Chloride Level 119 mmol/L (98-107) 121 mmol/L (98-107) Carbon Dioxide Level 28 mmol/L (21-32) 25 mmol/L (21-32) Anion Gap 8 (6-14) 9 (6-14) Blood Urea Nitrogen 23 mg/dL (8-26) 25 mg/dL (8-26) Creatinine 0.7 mg/dL (0.7-1.3) 0.8 mg/dL (0.7-1.3) Estimated GFR (Cockcroft-Gault) 107.7 92.3 Glucose Level 235 mg/dL (70-99) 219 mg/dL (70-99) Calcium Level 8.8 mg/dL (8.5-10.1) 9.0 mg/dL (8.5-10.1) Phosphorus Level 1.6 mg/dL (2.6-4.7) 2.0 mg/dL (2.6-4.7) Magnesium Level 2.4 mg/dL (1.8-2.4) 2.6 mg/dL (1.8-2.4) Triglycerides Level 72 mg/dL (0-150) Laboratory Tests Test 10/02/21 09:40 10/03/21 05:40 Sodium Level 155 mmol/L (136-145) 155 mmol/L (136-145) Potassium Level 3.6 mmol/L (3.5-5.1) 3.5 mmol/L (3.5-5.1) Chloride Level 119 mmol/L (98-107) 121 mmol/L (98-107) Carbon Dioxide Level 28 mmol/L (21-32) 25 mmol/L (21-32) Anion Gap 8 (6-14) 9 (6-14) Blood Urea Nitrogen 23 mg/dL (8-26) 25 mg/dL (8-26) Creatinine 0.7 mg/dL (0.7-1.3) 0.8 mg/dL (0.7-1.3) Estimated GFR (Cockcroft-Gault) 107.7 92.3 Glucose Level 235 mg/dL (70-99) 219 mg/dL (70-99) Calcium Level 8.8 mg/dL (8.5-10.1) 9.0 mg/dL (8.5-10.1) Phosphorus Level 1.6 mg/dL (2.6-4.7) 2.0 mg/dL (2.6-4.7) Magnesium Level 2.4 mg/dL (1.8-2.4) 2.6 mg/dL (1.8-2.4) Triglycerides Level 72 mg/dL (0-150) Medications Current Medications Ondansetron HCl (Zofran) 4 mg PRN Q6HRS PRN IVP NAUSEA/VOMITING; Start 09/25/21 at 20:00 Info (Icu Electrolyte Protocol) 1 ea DAILY MC Last administered on 09/30/21at 09:00; Start 09/26/21 at 09:00 Sodium Chloride (Normal Saline Flush) 3 ml QSHIFT PRN IV AFTER MEDS AND BLOOD DRAWS; Start 09/25/21 at 20:00 Sodium Chloride 1,000 ml @ 1,000 mls/hr Q1H IV Last administered on 09/25/21at 21:59; Start 09/25/21 at 20:00; Stop 09/25/21 at 20:59; Status DC Senna/Docusate Sodium (Senna Plus) 1 tab BID PO ; Start 09/25/21 at 21:00 Levetiracetam 100 ml @ 400 mls/hr 1X ONCE IV Last administered on 09/25/21at 22:26; Start 09/25/21 at 22:00; Stop 09/25/21 at 22:14; Status DC Lorazepam (Ativan Inj) 2 mg PRN Q4HRS PRN IVP AGITATION SEIZURE Last administered on 09/30/21at 03:03; Start 09/25/21 at 20:00 Hydralazine HCl (Apresoline Inj) 10 mg PRN Q4HRS PRN IVP ELEVATED BP, SEE COMMENTS Last administered on 10/02/21at 16:28; Start 09/25/21 at 20:00 Nicardipine HCl 50 mg/Sodium Chloride 250 ml @ 25 mls/hr CONT PRN IV PER PROTOCOL Last administered on 09/25/21at 22:44; Start 09/25/21 at 21:45; Stop 09/26/21 at 08:48; Status DC Info (Review Meds) 1 ea PRN 1X PRN MC SEE COMMENTS; Start 09/26/21 at 08:30 Acetaminophen (Tylenol Supp) 650 mg PRN Q6HRS PRN SC FEVER > 100.5'F or 38'C Last administered on 10/02/21at 11:47; Start 09/26/21 at 08:30 Nicardipine HCl 50 mg/Sodium Chloride 250 ml @ 25 mls/hr CONT PRN IV HYPERTENSION, see comments Last administered on 09/27/21at 20:04; Start 09/26/21 at 08:30 Labetalol HCl (Normodyne Iv Push) 10 mg PRN Q10MIN PRN IVP HYPERTENSION, see comments Last administered on 10/02/21at 05:35; Start 09/28/21 at 14:30 Metoprolol Tartrate (Lopressor Vial) 5 mg PRN Q5MIN PRN IVP TACHYCARDIA Last administered on 09/30/21at 04:04; Start 09/28/21 at 14:30 Sodium Chloride 1,000 ml @ 75 mls/hr [id number] IV Last administered on 09/29/21at 05:24; Start 09/28/21 at 18:30; Stop 09/29/21 at 12:00; Status DC Perflutren Protein Type A Microsphe (Optison) 0.66 mg 1X ONCE IV ; Start 09/29/21 at 08:15; Stop 09/29/21 at 08:16; Status DC Piperacillin Sod/ Tazobactam Sod (Zosyn Per Pharmacy) 1 each PRN DAILY PRN MC SEE COMMENTS; Start 09/29/21 at 11:00 Piperacillin Sod/ Tazobactam Sod 3.375 gm/Sodium Chloride 50 ml @ 100 mls/hr Q6HRS IV Last administered on 10/03/21at 05:35; Start 09/29/21 at 11:30 Amino Acids/ Electrolytes/ Dextrose 1,000 ml @ 75 mls/hr [id number] IV Last administered on 10/01/21at 09:06; Start 09/29/21 at 12:00; Stop 10/01/21 at 21:59; Status DC Metoprolol Tartrate (Lopressor Vial) 2.5 mg Q6HRS IVP Last administered on 10/01/21at 05:36; Start 09/30/21 at 14:30; Stop 10/01/21 at 10:51; Status DC Potassium Chloride/Water 100 ml @ 100 mls/hr Q1H IV Last administered on 09/30/21at 17:00; Start 09/30/21 at 16:00; Stop 09/30/21 at 17:59; Status DC Ringer's Solution 1,000 ml @ 10 mls/hr Q24H IV Last administered on 10/02/21at 11:39; Start 09/30/21 at 21:00 Info (Tpn Per Pharmacy) 1 each PRN DAILY PRN MC SEE COMMENTS Last administered on 10/02/21at 13:32; Start 10/01/21 at 10:30 Metoprolol Tartrate (Lopressor Vial) 5 mg Q6HRS IVP Last administered on 10/03/21at 05:41; Start 10/01/21 at 12:00 Sodium Chloride 45 meq/Potassium Chloride 50 meq/ Potassium Phosphate 20 mmol/ Magnesium Sulfate 10 meq/ Multivitamins 10 ml/Zinc/Copper/ Manganese/ Selenium 1 ml/ Total Parenteral Nutrition/Amino Acids/Dextrose/ Fat Emulsion Intravenous 1,512 ml @ 63 mls/hr TPN CONT IV Last administered on 10/01/21at 21:07; Start 10/01/21 at 22:00; Stop 10/02/21 at 21:59; Status DC Potassium Phosphate 15 mmol/ Sodium Chloride 105 ml @ 52.5 mls/hr 1X ONCE IV Last administered on 10/02/21at 14:02; Start 10/02/21 at 14:00; Stop 10/02/21 at 15:59; Status DC Potassium Chloride 10 meq/ Potassium Acetate 30 meq/Potassium Phosphate 30 mmol/ Magnesium Sulfate 10 meq/ Multivitamins 10 ml/Zinc/Copper/ Manganese/ Selenium 1 ml/ Total Parenteral Nutrition/Amino Acids/Dextrose/ Fat Emulsion Intravenous 1,512 ml @ 63 mls/hr TPN CONT IV Last administered on 10/02/21at 21:40; Start 10/02/21 at 22:00; Stop 10/03/21 at 21:59 Potassium Phosphate 15 mmol/ Sodium Chloride 105 ml @ 52.5 mls/hr Q2H IV ; Start 10/03/21 at 09:00; Stop 10/03/21 at 12:59 Vitals/I & O Vital Sign - Last 24 Hours 10/02/21 10/02/21 10/02/21 10/02/21 12:00 12:13 16:00 16:28 Temp 101.4 98.4 101.4 98.4 Pulse 96 125 96 116 Resp 36 36 B/P (MAP) 146/97 (113) 146/97 174/88 (116) 174/88 Pulse Ox 100 100 O2 Delivery Nasal Cannula Nasal Cannula O2 Flow Rate 3.0 3.0 10/02/21 10/02/21 10/02/21 10/02/21 17:32 18:02 18:13 20:00 Pulse 138 B/P (MAP) 144/74 (97) 147/74 Pulse Ox 98 O2 Delivery Room Air Nasal Cannula O2 Flow Rate 3.0 10/02/21 10/02/21 10/03/21 10/03/21 20:00 23:58 00:00 04:00 Temp 98.9 98.5 98.1 98.9 98.5 98.1 Pulse 125 125 125 121 Resp B/P (MAP) 140/74 (96) 140/74 140/74 (96) 153/65 (94) Pulse Ox 100 100 95 O2 Delivery Nasal Cannula Nasal Cannula Room Air O2 Flow Rate 3.0 3.0 10/03/21 05:41 Pulse 121 B/P (MAP) 153/65 Intake and Output 10/02/21 10/02/21 10/03/21 15:00 23:00 07:00 Intake Total 50 ml 919.46 ml Balance 50 ml 919.[address] HEAD WITHOUT CONTRAST 10/02/2021 1:29 PM Indication: Follow-up intracranial hemorrhage Comparison: CT head, September 26, 2021 Procedure: Multidetector CT imaging of the head was performed without the administration of contrast. Findings: Redemonstration of the large predominantly parietal intraparenchymal hemorrhage with surrounding edema. Focal mass effect is similar similar. There is approximately 1 cm of [id number] midline shift, which is similar. A component of intraventricular hemorrhage is present which is evidenced by blood layering in the dependent portion of the bilateral, lateral ventricles. Prominence of the lateral ventricles similar to comparison study. A definitive obstruction is identified on today's exam. No acute osseous changes are noted in the interim. IMPRESSION: 1. Grossly similar large intraparenchymal hemorrhage parietal lobe with surrounding edema 2. Small amount of intraventricular hemorrhage now noted in the dependent portions of the lateral ventricles without overt obstruction. Justicifation of Admission Dx: Justifications for Admission: Justification of Admission Dx: Yes Acute Hemorrhagic Stroke: Acute Hemorrhagic Stroke NICKIE CAMILO MD Oct 03, 2021 09:11
[2021-10-03] MEDS: POTASSIUM PHOS,M-BASIC-D-BASIC 15 MMOL in IV NORMAL SALINE 100ML 100 ML IV SCH ×2 (09:40→12:57)
--- NOTE | 2021-10-03 10:18 | PDOC ---
Date of Service: DATE: 10/03/21 TIME: 10:15 Subjective: Subjective: Daughter present - holding on PEG for now, could consider in the future - TPN okay in short-term. Objective: Objective: D/w neurology - plans to DC to LTC. Vital Signs: Vital Signs Date Time Temp Pulse Resp B/P (MAP) Pulse Ox O2 Delivery O2 Flow Rate FiO2 10/03/21 05:41 121 153/65 10/03/21 04:00 98.1 22 95 Room Air 98.1 10/03/21 00:00 3.0 Imaging: Head CT 10/02 IMPRESSION: 1. Grossly similar large intraparenchymal hemorrhage parietal lobe with surrounding edema. 2. Small amount of intraventricular hemorrhage now noted in the dependent portions of the lateral ventricles without overt obstruction. PE: GEN: appears chronically ill LUNGS: NC 3L HEART: tachycardic ABD: non-distended NEURO/PSYCH: does not awaken during conversation w/ daughter A/P: Left parietal lobe hemorrhage, CVA, dysphagia COVID negative -- Plans to DC to [facility], PEG on hold for now. Justicifation of Admission Dx: Justifications for Admission: Justification of Admission Dx: Yes Acute Hemorrhagic Stroke: Acute Hemorrhagic Stroke SALUD ESPARZA Oct 03, 2021 10:18
--- NOTE | 2021-10-03 10:22 | PDOC ---
ELMER FOSTER GEAR TOOTH GRINDING MACHINE OPERATOR 10/03/21 1022: CARDIO Progress Notes Date and Time Date of Service 10/03/2021 Time of Evaluation 1000 Subjective Subjective: Other (mumbles) Vitals Vitals Vital Signs Date Time Temp Pulse Resp B/P (MAP) Pulse Ox O2 Delivery O2 Flow Rate FiO2 10/03/21 05:41 121 153/65 10/03/21 04:00 98.1 22 95 Room Air 98.1 10/03/21 00:00 3.0 Weight Weight [ ] Input and Output Intake and Output Intake and Output 10/03/21 07:00 Intake Total 969.46 ml Balance 969.46 ml IV Total 969.46 ml # Voids 6 Laboratory Labs Laboratory Tests Test 10/03/21 05:40 Sodium Level 155 mmol/L (136-145) Potassium Level 3.5 mmol/L (3.5-5.1) Chloride Level 121 mmol/L (98-107) Carbon Dioxide Level 25 mmol/L (21-32) Anion Gap 9 (6-14) Blood Urea Nitrogen 25 mg/dL (8-26) Creatinine 0.8 mg/dL (0.7-1.3) Estimated GFR (Cockcroft-Gault) 92.3 Glucose Level 219 mg/dL (70-99) Calcium Level 9.0 mg/dL (8.5-10.1) Phosphorus Level 2.0 mg/dL (2.6-4.7) Magnesium Level 2.6 mg/dL (1.8-2.4) Physical Exam HEENT: Neck Supple W Full Motion Chest: Symmetric LUNGS: Other (diminished) Heart: RRR (st) Abdomen: Other (soft) Extremities: No Edema Neurology: other (restless) Assessment Assessment 1. 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 2. CVA 3. HTN: labile episodes.EF and LV WM nml 4. Reactive sinus tachycardia with PVCs: physiologic with above neurological issue 5. Dysphagia: possible PEG per GI 6. Hypoxia: better with O2. pulmonary following 7. Moderate pulmonary HTN 8. Encephalopathy: restless 9. Fever: Tmax 102.5. none overnight 10. Hypernatremia: per PCP Recommendations 1. IV lopressor 2. Labetolol PRN for consistently high BP 3. Supportive care Justicifation of Admission Dx: Justifications for Admission: Justification of Admission Dx: Yes Acute Hemorrhagic Stroke: Acute Hemorrhagic Stroke MARCI DRAKE MD 10/03/21 2218: CARDIO Progress Notes Assessment Assessment Patient seen and examined. Agree with EVENT SPECIALIST FOOD DEMONSTRATOR's assessment and plan. Sinus tachycardia, most probably reactive/physiologic 2D echo showed normal LV systolic function without any significant structural abnormalities Acute CVA complicated by large intraparenchymal hemorrhage of left parietal lobe post TPA -neurology following ELMER FOSTER APRN Oct 03, 2021 10:22 MARCI DRAKE MD Oct 03, 2021 22:18
--- NOTE | 2021-10-03 11:17 | NUR ---
SS following up with discharge planning. SS reviewed pt chart and discussed with pt RN. Pt is currently on room air. COVID19 negative. Pt on TPN, IV Zosyn, and IV Metoprolol. Pt accepted at [facility], ; fax [phone]. Pt's daughter reported this morning that she wanted [facility]. Bed available. Discharge orders sent to [facility]. Pt will discharge today and go to [facility] at 1300 via [facility] ambulance. Pt, pt's RN, and pt's daughter notified. Addendum: 10/03/21 at 1548 by ADELA MCNALLY Pt's daughter reported that she wants to go to [facility] now. Pt will discharge today and go to [facility] at 1600 via [facility].
[2021-10-03 12:00] VITALS: BP 141/77
--- NOTE | 2021-10-03 12:08 | PDOC ---
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 Has not seen a doctor in decades Tobacco abuse x60 years Hypoxia Leukocytosis Tachycardia Right neglect Possible aspiration pneumonia History of Present Illness History of Present Illness 10/03/2021 Patient seen and examined in the ICU again I spoke with his daughter Ailyn again Discussed with case management Discussed with RN [facility] later today around 1:00 10/02/2021 Patient seen and examined in the ICU He is resting on his right side seems to be hyperventilating Will not let me touch him much seems to grimace with pain He is on TPN His breath sounds sound a little coarse I suspect he is having problems handling his secretions still He has been tentatively accepted to go [facility] tomorrow Discussed with RN Discussed with case management Chart reviewed He remains very ill 10/01/2021 Patient seen and examined in the ICU He has coarse breath sounds today still having problems handling his secretions GI holding off on PEG tube at this time due to signs of intracranial h ypertension in the size of his bleed Discussed with case management Discussed with RN Chart reviewed He remains critically ill 09/30/2021 Patient seen and examined in the ICU He is resting comfortably apparently was exhausted after speech therapy eval I called GI as he apparently needs a PEG tube I called sr. 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 Afebrile. S/P tPA with hemorrhagic conversion. Neurosurgery consulted. Continue nicardipine drip with goal blood /90 mmHg. Appears to be in rate controlled A. fib. He is somewhat somnolent. Critical care time 30 minutes spent reviewing charts, reviewing labs, reviewing imaging, discussion with RN. 09/27: Patient seen in ICU. Afebrile, tachycardic. S/P TPA with hemorrhagic conversion. Continue to manage blood pressure with IV nicardipine, but essentially no change. Plan is for echocardiogram and MRI when clinical course improves. Critical care time 30 minutes spent reviewing charts, reviewing labs, reviewing imaging, discussion with RN. 09/28: Patient seen in ICU. Afebrile, remains somewhat tachycardic. He is clinically unchanged. We will continue to monitor in ICU. PT/OT/ST following. If patient fails a swallow study test, which is highly likely, will need to provide nutrition with NG tube. Spent a considerable amount of time with daughter discussing plan of care. He is COVID-19 negative by PCR at [facility], so immunocompromised family members may come and visit him. Critical care time 30 minutes spent reviewing charts, reviewing labs, reviewing imaging, discussion with daughter, discussion with RN. 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 has right neglect General: mild distress, Other (very drowsy) Heart: Regular rate (ST), Normal S1, Normal S2, No murmurs Lungs: Clear Abdomen: Soft Extremities: No cyanosis, No edema Skin: No breakdown, No significant lesion Labs Labs: Laboratory Tests Test 10/03/21 05:40 Sodium Level 155 mmol/L (136-145) Potassium Level 3.5 mmol/L (3.5-5.1) Chloride Level 121 mmol/L (98-107) Carbon Dioxide Level 25 mmol/L (21-32) Anion Gap 9 (6-14) Blood Urea Nitrogen 25 mg/dL (8-26) Creatinine 0.8 mg/dL (0.7-1.3) Estimated GFR (Cockcroft-Gault) 92.3 Glucose Level 219 mg/dL (70-99) Calcium Level 9.0 mg/dL (8.5-10.1) Phosphorus Level 2.0 mg/dL (2.6-4.7) Magnesium Level 2.6 mg/dL (1.8-2.4) Assessment and Plan Assessmemt and Plan Large left intraparenchymal hemorrhage after TPAe 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 Has not seen a doctor in decades Tobacco abuse x60 years Hypoxia Leukocytosis Tachycardia Right neglect Possible aspiration pneumonia Plan Discharge [facility] For now continue the following; Appreciate pulmonary cardiology and GI input Ordered empiric Zosyn We are getting a PICC line for TPN He is likely going to need a PEG tube but GI holding off at this point as he may not be stable Continue PPN for now Trend labs DVT prophylaxis Full code Suspect he will need to go to [facility] rehab or some other high-level rehabilitation unit once he is more stable Long-term prognosis extremely guarded Comment Review of Relevant I have reviewed the following items chapito (where applicable) has been applied. Medications: Current Medications Medications (Trade) Dose Ordered Sig/Isaac Route PRN Reason Start Time Stop Time Status Last Admin Dose Admin Potassium Phosphate 15 mmol/ Sodium Chloride 105 ml @ 52.5 mls/hr 1X ONCE IV 10/02/21 14:00 10/02/21 15:59 DC 10/02/21 14:02 Potassium Chloride 10 meq/ Potassium Acetate 30 meq/Potassium Phosphate 30 mmol/ Magnesium Sulfate 10 meq/ Multivitamins 10 ml/Zinc/Copper/ Manganese/ Selenium 1 ml/ Total Parenteral Nutrition/Amino Acids/Dextrose/ Fat Emulsion Intravenous 1,512 ml @ 63 mls/hr TPN CONT IV 10/02/21 22:00 10/03/21 21:59 10/02/21 21:40 Potassium Phosphate 15 mmol/ Sodium Chloride 105 ml @ 52.5 mls/hr Q2H IV 10/03/21 09:00 10/03/21 12:59 10/03/21 09:40 Justifications for Admission Other Justification HUSSEIN RICHEY III DO Oct 03, 2021 12:08
[2021-10-03 12:56] VITALS: BP 141/77
[2021-10-03] MEDS: TPN PER PHARMACY MC PRN (14:25)
[2021-10-03] MEDS ORDERED: [UNRECOGNIZED DRUG - OTHER] IV SCH (22:00)
[2021-10-03] MEDS ORDERED: DEXTROSE 70% IV SCH (22:00)
[2021-10-03] MEDS ORDERED: TOTAL PARENTERAL NUTRITION IV SCH (22:00)
[2021-10-03] MEDS ORDERED: AMINO ACID IV SCH (22:00)
--- NOTE | 2021-10-04 01:57 | DS ---
DATE OF DISCHARGE: 10/03/2021 ADMITTING DIAGNOSIS: Hemorrhagic stroke. DISCHARGE DIAGNOSES: 1. Hemorrhagic stroke (left intraparenchymal hemorrhage after TPA). 2. Not seen by a doctor in decades. 3. Tobacco abuse x 60 years. 4. Hypoxia. 5. Leukocytosis. 6. Tachycardia. 7. Right neglect. 8. Possible aspiration pneumonia. CONSULTS: Cardiology, GI, Pulmonary and Neurology. HOSPITAL COURSE: The patient is a pleasant elderly male who did go to the doctor for several decades. He also smoked for 60 years. Basically, he presented with some stroke symptoms with right-sided weakness and that was at [facility] in the Emergency Room, they gave him TPA, but unfortunately the patient bled into the brain. He was transferred here. The above consults were obtained. We have been working on physical therapy, occupational therapy and speech therapy. Currently have IV TPN running. We are going to get a PEG tube, but he is a little too sick. We suspect he has intracranial hypertension. For now, the plan is to get him to [facility]. DISPOSITION: [facility]. ACTIVITY: Bed rest. DIET: N.p.o. He has TPN ____. MEDICATIONS: IV Zosyn 3.375 every 6 hours, hydralazine p.r.n. 10 IV every 6 hours, labetalol 10 IV every 6 hours p.r.n., metoprolol 5 mg IV every 6 hours p.r.n., p.r.n. Tylenol, p.r.n. lorazepam IV every 6 hours. We will continue the TPN, stool softeners, p.r.n. Zofran. TOTAL TIME: 39 minutes. CAMACHO/DALE/LUISANA DR: CAMACHO/rogelio TID: [id number]
== END 2021-10-03 15:45 | DRG 871 ==
LOC: 1 WEST ICU 19:30
PROVIDERS: ADMIT Student in an Organized Health Care Education/Training Program; ATTEND Student in an Organized Health Care Education/Training Program
PROC: 02HV33Z Insertion of Infusion Device into Superior Vena Cava, Percutaneous Approach (ICD-10-PCS; principal; 2021-10-01)
PROC: B548ZZA Ultrasonography of Superior Vena Cava, Guidance (ICD-10-PCS; 2021-10-01)
DX: A41.9 Sepsis, unspecified organism (principal); I61.5 Nontraumatic intracerebral hemorrhage, intraventricular; G93.6 Cerebral edema; J69.0 Pneumonitis due to inhalation of food and vomit; I61.1 Nontraumatic intracerebral hemorrhage in hemisphere, cortical; E87.0 Hyperosmolality and hypernatremia; G93.40 Encephalopathy, unspecified; R41.4 Neurologic neglect syndrome; D72.829 Elevated white blood cell count, unspecified; I10 Essential (primary) hypertension; I27.20 Pulmonary hypertension, unspecified; I49.3 Ventricular premature depolarization; J32.0 Chronic maxillary sinusitis; R09.02 Hypoxemia; R13.19 Other dysphagia; R29.704 NIHSS score 4; Z20.822 Contact with and (suspected) exposure to COVID-19; Z72.0 Tobacco use; Z86.73 Personal history of transient ischemic attack (TIA), and cerebral infarction without residual deficits; Z92.82 Status post administration of tPA (rtPA) in a different facility within the last 24 hours prior to admission to current facility
CPT/HCPCS: 36415; 36569; 70450; 70551; 71045; 80048; 80053; 80061; 83605; 83735; 84100; 84443; 84478; 85025; 85610; 93005; 93306; 93880; J0360; J2060; J2543; J3475; J3480; J3490; J7030; J7050; J7120; U0003; 92526-GN; 92610-GN; 97110-GP; 97530-GO; 97530-GP; C8929; G0378